=== PATIENT | female | born 1965 | race Caucasian/White ===

== ENCOUNTER → 2016-07-09 | Outpatient (CLI) | payer MEDICAID ==
[~2016-07-09] MED LIST: ATENOLOL50 M1 PO; BUPROPION HCL75 M1 PO; HYDROCODONE-APA1 TA1 PO; METFORMIN500 MG PO; NAPROXEN250 MG PO; VICODIN 5/500 T1 TAB PO; VOLTAREN75 MG PO; ZOFRAN ODT4 MG PO
== END ==
LOC: LAB 14:36
DX: N39.0 Urinary tract infection, site not specified (principal)

== ENCOUNTER 2016-12-28 08:15 | Emergency (ER) | payer MEDICAID ==
[~2016-12-28] VITALS: Ht 167.6 cm; Wt 90.7 kg
[~2016-12-28 08:15] MED LIST changes: +BACTRIM DS 8001 TA1 PO; +HYDROCODONE-APA1 TA2 PO; +INDOCIN25 MG PO; +NAPROSYN 500MG500 MG PO
--- NOTE | 2016-12-28 08:30 | Emergency Room Report ---
History of Present Illness Time Seen by MD Montelongo Presenting Problem in Triage Pt arrived:Walked Presenting Problem:complains of ear pain bilaterally, sore throat, cough and "fever" x 3 days Onset of symptoms date/time:/ or onset unknown for:MEDICAL HX UNKNOWN Treatment Prior to Arrival: [employer] [facility] Provided by: Sepsis Risk Assessment: Temp: 98.3 B/P: 169/80 MAP: 109 Pulse: 99 Resp: 18 Recent fever? N Clinical Suspician of Infection? N Mental Status: 1 - Regular (Normal Baseline) Sepsis Risk:Low Sepsis Risk Have you (or family members/close friends) recently traveled outside the [place]? N If Yes, where/when: Have you had exposure to infectious disease within the past month? TB? Other? Specify: Comment The patient has a 3 day history of a respiratory infection. She started with a sore throat also now has rhinorrhea, cough with clear mucus, nausea, and earaches, particularly on the LEFT. Temperature last night was 99 degrees. She has ear tubes. States she cannot take [id number] cough medications, dextromethorphan, because it makes her sick and causes her to vomit orange liquid. Has taken Amoxicillin and Zithromax for ear infections in the past. ALLERGIES Coded Allergies: prochlorperazine (From Compazine) (Mild, CONFUSION 12/28/16) latex (I-RASH 12/28/16) oxycodone (From PERCOCET) (NA-NAUSEA/VOMITING 12/28/16) ranitidine (From ZANTAC) (VOMIT 12/28/16) Home Medications Active Scripts SULFAMETHOXAZOLE W/TRIMETHOPRI (Bactrim Ds Tab) 1 TABLET PO BID #20 TAB Prov: 09/25/16 NAPROXEN (NAPROSYN 500MG TAB) 500 MG PO BID #20 TAB Prov: 09/25/16 Reported Medications Atenolol 50 MG PO DAILY #30 Metformin HCL (Metformin) 500 MG PO BID #60 History Medical History General CAD? No Angina: No IA: No Hypertension? No Hyperlipidemia? No CHF? No DVT? No PE? No COPD? No Asthma? Yes Anemia? No GERD? Yes Gastric ulcers? No GI Bleed? No Hernia? No Thyroid Problems? No Hypothyroidism? No CVA? No Seizures? No Diabetes? Yes Insulin Dependent: No Insulin Pump: No Home FSBS? Yes Renal Insuffiency? Yes End Stage Renal Disease? Yes UTI? Yes Stones? Yes BPH? No GB Disease: Yes Nephritic Syndrome? No Asplenia? No Hepatitis? Yes Sickle Cell Disease? No Arthritis? No Migraines? No Cataracts? No Glaucoma? No MRSA? No HIV? No TB? No Anxiety? Yes Depression? Yes Cancer? No More? No Additional hx: mitral Valve prolapse Immunization Hx Ped.Immunizations UTD Yes DT/Tetanus Unknown Flu Refused Pneumonia Never Had Surgical Hx Previous Surgery?Y WISDOM TEETH CYST R.OVARY AND PART OF R. OVARY REMOVED KIDNEY STONES-LEFTX4 LAP VIKTORIA DIANA EAR TUBES GALLBLADDER SALT [employer] STATION Hx LMP N/A Family History Family Hx Diabetes Yes CAD No Hypertension No Hyperlipidemia Yes Cancer Yes TB No Social History Smoking Hx Smoker: Never Smoker Tobacco: No Type N/A Packs/day N/A Are you/the child exposed to second-hand smoke: No Alcohol Alcohol: No Review of Systems All Other Systems Reviewed and Negative Constitutional fever ENT nose discharge, throat pain. Respiratory cough Physical Exam Vital Signs Vital Signs Date Time Temp Pulse Resp B/P Pulse O2 O2 Flow FiO2 Ox Delivery Rate 12/28 0850 98 18 158/72 99 12/28 0823 98.3 99 18 169/80 99 General Appearance no apparent distress Eye Exam - bilateral eye normal exam, bilateral eye PERRL, bilateral eye EOMI Ear, Nose, Throat RIGHT tympanic membrane shows no erythema or effusion. LEFT tympanic membrane shows mild erythema anteriorly. No drainage from tympanostomy tube., pharynx shows mild erythema, no exudates. Neck normal inspection, non-tender, supple, full range of motion, tender over submandibular nodes, but not enlarged. No posterior adenopathy. Respiratory Status Yes: trachea midline, chest symmetrical, non productive cough. No: respiratory distress. Lung Sounds bilateral: normal breath sounds, lungs clear. Cardiovascular normal exam, regular rate/rhythm, no peripheral edema, no gallop, no JVD, no murmur, no rub, normal peripheral pulses Peripheral Pulses Pulses normal Yes Gastrointestinal normal bowel sounds, normal exam, non tender, soft, no organomegaly Extremities normal inspection Neurologic alert Mental status normal mood/affect Skin intact, normal color, warm/dry Medical Decision Making LABS/Meds/Orders Pt receiving controlled substance in ED? No Progress - Patient asked about the possibility of influenza. I offered testing, but she declined. Departure Departure Disposition DC Home or Self Care(routine) Clinical Impression Primary Impression: Viral upper respiratory infection Secondary Impressions: Otalgia, left ear Condition STABLE Referrals Jesse DICKINSON,Celio Calabrese (Family) Patient Instructions DI for Otitis Media (Middle Ear Infection)-Child, DI for Viral Upper Respiratory Infection -- Adult Additional Instructions Off work 12/28, 12/29, 12/30. Additional instructions for UPPER RESPIRATORY INFECTION: See your physician as soon as possible for further evaluation. Return immediately if you have an uncontrollable fever greater than 102 degrees, difficulty breathing or shortness of breath, persistent vomiting, or inability to swallow. Prescriptions Current Visit Scripts Benzonatate (Tessalon Perle) 100 MG PO TID #15 SGL Azithromycin (Zithromycin (Z-ASAEL) 250MG Tab) 250 MG PO DAILY #6 TAB TAKE TWO (2) TABLETS ON DAY 1, THEN ONE (1) TABLET DAY #2 THRU #5 ED Critical Care Critical Care No at 1288
--- OUTSIDE RECORDS SUMMARY | 2016-12-28 08:31 | External Medical Summary Rpt | CCD ---
Author Author , [facility] Organization [facility] Address Unknown Phone Care Team Providers Care Regional Medical Director Name Role Phone BEINEKE BRENDAN, BEINEKE Unavailable Unavailable BRENDAN BEINEKE BRENDAN, BEINEKE Unavailable Unavailable BRENDAN RICHARDS ALL, RICHARDS ALL Unavailable Unavailable [facility] Unavailable Unavailable HOSPITAL, [facility] ALFRED MIGUEL, Unavailable Unavailable ALFRED MIGUEL [facility] Unavailable Unavailable ADULT & PED, [facility] ZOILA RADHA, ZOILA RADHA Unavailable Unavailable BROOKS NAIF, BROOKS NAIF Unavailable Unavailable [facility] ALONZO JR ART, ALONZO Unavailable Unavailable JR ART JEAN, JEAN Unavailable Unavailable DEPA RAY, DEPA RAY Unavailable Unavailable FARRER JIGNESH, FARRER Unavailable Unavailable JIGNESH [facility] Un[facility]available [facility], [facility] FRYMAN EUG, FRYMAN Unavailable Unavailable EUG DELL SHILA, DELL Unavailable Unavailable SHILA [facility] Unavailable Unavailable HOSPITA, [facility] H[facility]PITA [facility] Unavailable Unavailable INC, [facility] Unavailable [facility]available H[facility]PITAL, [facility] Unavailable [facility]available HOSPITAL P, [facility] P [facility], Unavailable Unavailable [facility] Unavailable GROUP PS, [facility] Unavailable Unavailable [facility], [facility] OLGUIN, OLGUIN Unavailable Unavailable OLGUIN ELLEN, OLGUIN Unavailable Unavailable ELLEN CHANTEL JR DWI, CHANTEL Unavailable Unavailable JR DWI ANNIE PRETTY, ANNIE PRETTY Unavailable Unavailable MCNEAL JOAQUIN, MCNEAL Unavailable Unavailable JOAQUIN ADEOLA GRE, Unavailable Unavailable ADEOLA GRE ADEOLA GRE, Unavailable Unavailable CHINEDU BUSH Unavailable Unavailable [facility] Unavailable Unavailable [facility], [facility] [employer] [address] [facility] Unavailable Unavailable MRI [facility], [employer] [address] [facility], [facility], [facility] Unavailable Unavailable LABS, [facility], Unavailable Unavailable PLL[facility], [facility], [facility] DANAY TOD, DANAY TOD Unavailable Unavailable SADEK, SADEK Unavailable Unavailable DELBERT DES, DELBERT DES Unavailable Unavailable SOKAN BAB, SOKAN BAB Unavailable Unavailable [place] SHE, Unavailable Unavailable KIANNA SHE [facility], Unavailable Unavailable [facility] BRETT COULTER, BRETT Unavailable Unavailable YFN MATHUR MARIO, KAREEN Unavailable Unavailable MARIO Purpose Continuity of Care Document - 07-08-2013 through 2016 Problems Code Diagnosis DOS Provider Status [id number] UNSPECIFIED 07-22-2016 [place] [facility]IAN [facility]ICAL CYST LEFT IMAGING ASS SIDE E1165 TYPE 2 07-17-2016 [facility] MELLITUS INC WITH HYPERGLYCEM IA E118 TYPE 2 07-17-2016 [facility] DI[facility]ETES PHYSICIANS, MELLITUS [facility] W/UNS COMPLICATIO NS [id number] UNSPECIFIED 07-17-2016 [facility] CYST INC UNSPECIFIED SIDE N839 NONINFLAMM 07-17-2016 [place] D/O OVARY MEDICAL FALLOP TUBE IMAGING ASS & BROAD LIG UNS R109 UNSPECIFIED 07-17-2016 [place] ABDOMINAL MEDICAL PAIN IMAGING ASS Z794 MANAGER OF RADIOLOGY 07-17-2016 [facility] CURRENT USE PHYSICIANS, OF INSULIN [facility] [id number] PERSONAL 07-17-2016 [place] HISTORY OF MEDICAL URINARY IMAGING ASS CALCULI N390 URINARY 07-09-2016 [facility] INFECTION INC SITE NOT SPECIFIED [id number] PAIN IN 02-05-2016 [facility] LEFT ANKLE PODIATRY [facility] M7732 CALCANEAL 02-05-2016 [facility] SPUR LEFT PODIATRY FOOT [facility] M7742 METATARSALG 02-05-2016 [facility] IA LEFT PODIATRY FOOT [facility] K75412 PAIN IN 02-05-2016 [facility] LEFT FOOT PODIATRY [facility] M7989 OTHER 01-17-[address] [facility] DISORDERS G5762 LESION OF 12-04-2015 [facility] PLANTAR PODIATRY NERVE LEFT [facility] LOWER LIMB E119 TYPE 2 09-18-2015 [facility] DIABETES PHYSICIANS MELLITUS GROUP WITHOUT COMPLICATIO NS 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-18-2015 [facility] TUNNEL PHYSICIANS SYNDROME GROUP UNSPECIFIED UPPER LIMB H6520 CHRONIC 06-15-2015 [facility] SEROUS PHYSICIANS OTITIS GROUP MEDIA UNSPECIFIED EAR J309 ALLERGIC 06-15-2015 [facility] RHINITIS PHYSICIANS UNSPECIFIED GROUP 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 Z6835 BODY MASS 06-15-2015 [facility] INDEX BMI PHYSICIANS 35.0-35.9 GROUP ADULT Z6836 BODY MASS 06-15-2015 [facility] INDEX BMI PHYSICIANS 36.0-36.9 GROUP ADULT Z885 ALLERGY 06-15-2015 [facility] STATUS TO PHYSICIANS NARCOTIC GROUP AGENT STATUS Z889 ALLERGY 06-15-2015 [facility] STATUS UNS PHYSICIANS RX MEDS & GROUP BIOLOG SUBSTANC STS R197 DIARRHEA 06-02-2015 [facility]PEC[facility] INC H6503 ACUTE 05-18-2015 [facility] SEROUS PHYSICIANS OTITIS GROUP MEDIA BILATERAL H6523 CHRONIC 05-18-2015 [facility] SEROUS [facility] OTITIS INC MEDIA BILATERAL H6693 OTITIS 05-18-2015 COMMUNITY MEDIA ANESTH OF UNSPECIFIED THE BLUE BILATERAL J320 CHRONIC 04-06-2015 [facility] MAXILLARY PHYSICIANS SINUSITIS GROUP Z6837 BODY MASS 04-06-2015 [facility] INDEX BMI PHYSICIANS 37.0-37.9 GROUP ADULT H6690 OTITIS 02-28-2015 [facility]IC[facility]IED HOSPITAL UNSPECIFIED EAR J0100 ACUTE 02-28-2015 [facility] SINUSITIS HOSPITAL UNSPECIFIED R05 COUGH 02-28-2015 [facility] Z0100 ENCOUNTER 02-14-2015 [facility] EXAM EYES & GRE VISION W/O ABNORMAL FIND K811 CHRONIC 02-10-2015 [facility], CHOLECYSTIT LLC IS K819 CHOLECYSTIT 02-10-2015 COMMUNITY IS ANESTH OF UNSPECIFIED THE BLUE K824 CHOLESTEROL 02-10-2015 [facility], OSIS OF LLC GALLBLADDER K828 OTHER 02-10-2015 [facility] SPECIFIED PHYSICIANS DISEASES OF GROUP GALLBLADDER R1011 RIGHT UPPER 12-27-2014 [place] QUADRANT MEDICAL PAIN IMAGING ASS R110 NAUSEA 12-27-2014 [place] [facility] H6592 UNSPECIFIED 12-26-2014 [facility] PHYSICIANS NONSUPPURAT GROUP GEOFF OTITIS MEDIA LT EAR I341 NONRHEUMATI 12-26-2014 [facility] C MITRAL PHYSICIANS VALVE GROUP PROLAPSE I10 ESSENTIAL 12-15-2014 [facility] HYPERTENSIO INC N 9390 FOREIGN 09-27-2014 [facility] IN [place] BLADDER AND ADULT & PED URETHRA 5920 CALCULUS OF 09-22-2014 [place] KIDNEY ANESTHESIA GROUP PS 7935 NONSPECIFIC 09-22-2014 [facility] ABN [place] FINDING RAD ADULT & PED & OTH EXAM ORGAN 90131 DIAB W/O 09-21-2014 [place] COMP TYPE COMMUNITY II/UNS NOT HOSPITAL STATED UNCNTRL 52112 ASTHMA, 09-21-2014 [facility] UNSPECIFIED [facility] UNSPECIFIED STATUS 96569 ESOPHAGEAL 09-21-2014 [facility] REFLUX [facility] 71666 ABDOMINAL 09-21-2014 [facility] UNSPECIFIED HOSPITAL SITE V148 PERSONAL 09-21-2014 [facility] HISTORY [facility] ALLERGY OT HOSPITAL SPEC MEDICINAL AGTS V5869 LONG-TERM 09-21-2014 [facility] (CURRENT) [facility] USE OF HOSPITAL OTHER MEDICATIONS 96135 OVERWEIGHT 09-16-2014 [facility] P 3559 MONONEURITI 09-16-2014 [facility] S OF [facility] UNSPECIFIED INC SITE 4240 MITRAL 09-16-2014 [facility] P 84687 CHEST PAIN 09-16-2014 [facility] UNSPECIFIED [facility] INC 64478 NAUSEA WITH 09-16-2014 [place] VOMITING MEDICAL IMAGING ASS 7881 DYSURIA 09-16-2014 [facility] INC 48187 ABDOMINAL 09-16-2014 [place] PAIN RIGHT MEDICAL UPPER IMAGING ASS QUADRANT V700 ROUTINE 09-16-2014 [facility] MEDICAL INC EXAM@HEALTH CARE FACL 1891 MALIGNANT 09-08-2014 [facility] NEOPLASM OF [place] RENAL ADULT & PED PELVIS 3829 UNSPECIFIED 07-20-2014 [facility] OTITIS PHYSICIANS MEDIA GROUP 4739 UNSPECIFIED 07-20-2014 [facility] SINUSITIS PHYSICIANS GROUP 87083 UNSPECIFIED 03-24-2014 [facility] OTALGIA PHYSICIANS GROUP 5932 ACQUIRED 03-24-2014 [facility] CYST OF [place] [facility]NEY ADULT & PED 7245 UNSPECIFIED 03-24-2014 [facility] BACKACHE [place] ADULT & PED 7295 PAIN IN 03-24-2014 [facility] SOFT PHYSICIANS TISSUES OF GROUP LIMB 08413 NEOPLASM OF 01-10-2014 [facility] [place] [address] OBESITY, 01-10-2014 [facility] UNSPECIFIED [facility] 4019 UNSPECIFIED 01-10-2014 [facility] ESSENTIAL [facility] HYPERTENSIO [facility] N 591 HYDRONEPHRO 01-10-2014 [facility] SIS [place] ADULT & PED 5921 CALCULUS OF 01-10-2014 [place] URETER ANESTHESIA GROUP PS V8534 BODY MASS 01-10-2014 [facility] INDEX COMMUNITY 34.0-34.9 HOSPITAL ADULT 7880 RENAL COLIC 01-06-2014 [facility] ADULT & PED V7283 OTHER 10-18-2013 [facility] SPECIFIED COMMUNITY PRE-OPERATI HOSPITA VE EXAMINATION 68683 MORBID 10-08-2013 [facility]ITAL 490 BRONCHITIS 10-08-2013 [facility] NOT [facility] SPECIFIED ACUTE OR CHRONIC 34373 EXTRINSIC 10-08-2013 [facility] ASTHMA, HOSPITAL UNSPECIFIED 77743 UNSPECIFIED 10-07-2013 [facility] PYELONEPHRI [facility] P TIS 22207 URINARY 10-05-2013 BEINEKE BRENDAN OBSTRUCTION UNSPECIFIED 84230 ABD/PELVIC 10-05-2013 BEINEKE BRENDAN SWELLING MASS/LUMP OT SPEC SITE 16203 OTHER 08-24-2013 [facility] FATIGUE INC V720 EXAMINATION 07-08-2013 A[facility]A OF EYES GRE AND VISION E11.65 TYPE 2 DIABETES MELLITUS WITH HYPERGLYCEM IA F32.9 MAJOR DEPRESSIVE DISORDER, SINGLE EPISODE, UNSPECIFIED N20.1 CALCULUS OF URETER N83.209 UNSPECIFIED OVARIAN CYST, UNSPECIFIED SIDE Allergies, Adverse Reactions, Alerts Clinical Alert Notifications Alert Diabetes: no A1C in the last 6 months Diabetes: no eye exam in the last 365 days Diabetes: no influenza vaccine in the last 365 days Diabetes: no lipid panel in the last 365 days Diabetes: no urine protein screening in the last 365 days Medications Na ND Rx Da Fi Fi Am Da Di Ph RX Ph St me C No te ll ll ou ys ag ar # ys at rm s nt no ma ic us Or Da si cy ia de te s n re d AT 68 09 10 30 30 00 CL Ac EN 38 -1 -1 .0 00 IN ti OL 20 5- 3- 00 00 IC ve OL 02 20 20 44 31 17 17 27 PH 50 0 45 AR MA MG CY TA BL ET LO 00 08 09 60 30 00 WA Ac RA 37 -0 -0 .0 00 L- ti ZE 82 1- 1- 00 04 MA ve PA 32 20 20 53 RT M 10 17 17 02 0. 1 15 PH 5 AR MG MA CY TA BL #5 ET 91 NA 65 07 08 20 10 00 WA Ac UT 16 -1 -1 .0 00 L- ti OX 20 9- 8- 00 07 MA ve EN 19 20 20 49 RT 01 17 17 97 50 1 34 PH 0 AR MG MA CY TA BL #5 ET 91 OWENS 65 07 08 20 10 00 WA Ac LF 86 -1 -1 .0 00 L- ti AM 20 9- 8- 00 07 MA ve ET 42 20 20 49 RT HO 00 17 17 97 XA 5 35 PH ZO AR LE MA -T CY MP #5 DS 91 TA BL ET AT 00 07 08 30 30 00 [place] Ac EN 09 -1 -0 .0 00 L- ti OL 30 6- 4- 00 07 MA ve OL 75 20 20 48 RT 21 17 17 82 50 0 16 PH AR MG MA CY TA BL #5 ET 91 AT 00 07 30 30 00 [place] Ac EN 78 -1 -0 .0 00 L- ti OL 11 5- 7- 00 07 MA ve OL 50 20 20 48 RT 61 17 17 82 50 0 16 PH AR MG MA CY TA BL #5 ET 91 AT 00 06 30 30 00 [place] Ac EN 09 -1 -0 .0 00 L- ti OL 30 6- 9- 00 07 MA ve OL 75 20 20 48 RT 21 17 17 82 50 0 16 PH AR MG MA CY TA BL #5 ET 91 LO 00 05 06 60 30 00 [place] Ac RA 37 -0 -0 .0 00 L- ti ZE 82 3- 2- 00 04 MA ve PA 32 20 20 53 RT M 10 17 17 02 0. 1 15 PH 5 AR MG MA CY TA BL #5 ET 91 UT 59 05 06 10 5 00 [place] Ac ED 74 -0 -0 .0 00 L- ti NI 60 3- 2- 00 07 MA ve SO 17 20 20 48 RT NE 30 17 17 57 6 37 PH 10 AR MA MG CY TA #5 BL 91 ET IN 31 05 06 20 5 00 [place] Ac DO 72 -1 -0 .0 00 L- ti ME 20 1- 2- 00 07 MA ve TH 54 20 20 48 RT AC 20 17 17 74 IN 1 68 PH AR 25 MA CY MG #5 CA 91 PS UL E BU 60 05 06 60 30 00 KY Ac UT 50 -0 -0 .0 00 L- ti OP 50 3- 2- 00 07 MA ve IO 15 20 20 48 RT N 80 17 17 57 HC 1 44 PH L AR 75 MA CY MG #5 TA 91 BL ET AZ 59 05 06 6. 5 00 [place] Ac IT 76 -0 -0 00 00 L- ti HR 23 3- 2- 0 07 MA ve OM 06 20 20 48 RT YC 00 17 17 57 IN 1 45 PH AR 25 MA 0 CY MG #5 TA 91 BL ET ME 68 05 06 60 30 00 [place] Ac TF 64 -0 -0 .0 00 L- ti OR 50 3- 2- 00 07 MA ve KS 54 20 20 48 RT N 55 17 17 57 HC 9 38 PH L AR 1, MA 00 CY 0 MG #5 91 TA BL ET AT 00 04 05 30 00 [place] Ac EN 78 -1 -0 .0 00 L- ti OL 11 4- 5- 00 07 MA ve OL 50 20 20 48 RT 61 17 17 22 50 0 68 PH AR MG MA CY TA BL #5 ET 91 AT 00 03 04 30 30 00 [place] Ac EN 78 -1 -0 .0 00 L- ti OL 11 5- 7- 00 07 MA ve OL 50 20 20 47 RT 61 17 17 66 50 0 31 PH AR MG MA CY TA BL #5 ET 91 AT 00 02 30 30 00 [place] Ac EN 78 -1 -1 .0 00 L- ti OL 11 0- 0- 00 07 MA ve OL 50 20 20 47 RT 61 17 17 00 50 0 64 PH AR MG MA CY TA BL #5 ET 91 AT 30 00 [place] Ac EN 78 -1 -1 .0 00 L- ti OL 11 3- 0- 00 07 MA ve OL 50 20 20 46 RT 61 17 17 44 50 0 00 PH AR MG MA CY TA BL #5 ET 91 AT 12 30 30 00 [place] Ac EN 78 -1 -0 .0 00 L- ti OL 11 2- 9- 00 07 MA ve OL 50 20 20 45 RT 61 16 17 80 50 0 08 PH AR MG MA CY TA BL #5 ET 91 Procedures [place] [address] [facility] TRANSVAGI 7 MEDICAL NAL IMAGING ASS US PELVIC 10945 [facility] 7 MEDICAL NONOBSTET IMAGING JOAQUIN ASS REAL-TIME IMAGE COMPLETE BLOOD 22607 [facility] COUNT 7 [facility] COMPLETE INC INC AUTO&AUTO DIFRNTL WBC COMPREHEN 89512 [facility] SIVE 7 [facility] [place] [address] [facility] ABDOMEN & 7 [facility] PELVIS INC INC W/O CONTRAST MATERIAL THERAPEUT 35717 [facility] IC 7 [facility] PROPHYLAC INC INC TIC/DX INJECTION SUBQ/IM THER 13141 [facility] PROPH/DX 7 [facility] NJX IV INC INC PUSH SINGLE/1S T SBST/DRUG CULTURE 86528 [facility] BACTERIAL 7 [facility] INC INC QUANTTATI VE COLONY COUNT URINE WALKING L4360 [facility] BOOT 6 [facility] PNEUMATC PODIATRY &/ VACUUM PLLC PREFAB CUSTM FIT ADD LOW L2840 [facility]ET [facility] EXTREM 6 [facility] ORTHOTIC PODIATRY TIB PLLC LENGTH SOCK FX/= EA MRI LOWER 44892 NICHOLASV NICHOLASV EXTREM [address] OTH/THN [facility] JT W/O CONTR MATRL RADEX 20042 FEET [facility] FOOT 6 [facility] COMPLETE PODIATRY MINIMUM 3 PLLC VIEWS RADEX 53020 [facility] FOOT 6 [facility] COMPLETE INC INC MINIMUM 3 VIEWS RADIOLOGI 37634 [place] RICHARDS ALL C 6 MEDICAL EXAMINATI IMAGING [place] 2 [place] [address] [facility] HPYLORI 6 [facility] STOOL INC INC IADNA-DNA 60627 [facility] /RNA GI 6 [facility] PTHGN INC INC MULTIPLEX PROBE TQ -25 CUL BACT 91574 [facility] STOOL 6 [facility] AEROBIC INC INC ISOL SALMONELL A&SHIGELL BLOOD 36072 [facility] OCCULT 6 [facility] PEROXIDAS INC INC E ACTV QUAL FECES 1-3 SPEC GLUC BLD 76165 [facility] GLUC MNTR 6 [facility] DEV INC INC CLEARED FDA SPEC HOME USE ANES 11190 COMMUNITY BRETT XTRNL MID 6 ANESTH YFN & INNER OF THE EAR W/BX BLUE TYMPANOTO MY COLLECTIO 40544 [facility] N VENOUS 6 [facility] BLOOD INC INC VENIPUNCT URE BLOOD 81490 [facility] COUNT 6 [facility] COMPLETE INC INC AUTO&AUTO DIFRNTL WBC BASIC 79919 [facility] METABOLIC 6 [facility] [place] T[place] [address] [facility] INFUSION 6 [facility] THERAPY/P INC INC ROPHYLAXI S /DX 1ST TO 1 HR THERAPEUT 10933 [facility] CIARA IC 6 [facility] H[facility] INJECTION INC INC IV PUSH EACH NEW DRUG URINE 41989 [facility] 6 [facility] TEST INC [place] [address] [facility] INFUSION 6 [facility] THERAPY INC INC PROPHYLAX IS/DX EA HOUR TYMPANOST 42020 [facility] PATRICK 6 [facility] H[facility] GENERAL INC INC ANESTHESI A IAADIADOO 82009 [facility] ISSA 5 [facility] DETERMINA 76015 [facility] 5 GRE GRE REFRACTIV E STATE OPHTH 53617 [facility] 5 GRE GRE XM&EVAL COMPRHNSV ESTAB PT 1/> LEVEL III 10587 [facility] ZOILA RADHA SURG 5 [facility] PATHOLOGY GROSS&[place] [address] [facility] INFUSION 5 [facility] THERAPY/P INC INC ROPHYLAXI S /DX 1ST TO 1 HR THERAPEUT 40324 [facility] U[facility] IC 5 [facility] INJECTION INC [place] [address] [facility] INFUSION 5 [facility] THERAPY INC INC PROPHYLAX IS/DX EA HOUR COLLECTIO 04772 [facility] N VENOUS 5 [facility] BLOOD INC INC VENIPUNCT URE INJECTION J2405 [facility] URBINA 5 [facility] ONDANSETR INC INC ON HCL PER 1 MG BLOOD 89415 [facility] COUNT 5 [facility] COMPLETE INC INC AUTO&AUTO DIFRNTL WBC ANES 49016 [facility] INTRAPERI 5 ANESTH SHE TONEAL OF THE UPPER BLUE ABDOMEN W/LAPS NOS LAPAROSCO 92145 [facility] PY SURG 5 [facility] CHOLECYST INC INC ECTOMY GLUC BLD 60151 [facility] GLUC MNTR 5 [facility] DEV INC INC CLEARED FDA SPEC HOME USE BLOOD 05682 [facility] COUNT 5 [facility] COMPLETE INC INC AUTO&AUTO DIFRNTL WBC COMPREHEN 36852 [facility] SIVE 5 [facility] METABOLIC INC INC PANEL COLLECTIO 87723 [facility] N VENOUS 5 [facility] BLOOD INC INC VENIPUNCT URE URINE 31947 [facility] 5 [facility] TEST INC INC VISUAL COLOR CMPRSN METHS ECG 65199 [facility] GOLDEN JR ROUTINE 5 [facility] W/LEAST P 12 LDS I&R ONLY ECG 76737 [facility] ROUTINE 5 [facility] ECG INC INC W/LEAST 12 LDS TRCG ONLY W/O I&R HEPATOBIL 62720 [facility] SYST 5 [facility] IMAG INC INC INC GB W/PHARMA INTERVENJ INJECTION J2805 [facility] 5 [facility] SINCALIDE INC INC 5 MICROGRAM S LIPID 99396 [facility] PANEL 5 [facility] INC INC HEMOGLOBI 08458 [facility] U[facility] N 5 [facility] GLYCOSYLA INC INC RASHAD A1C GENERAL 84108 [facility] HEALTH 5 [facility] [place] [address] [facility] THYROXINE 5 [facility] TOTAL INC INC CYSTO 27188 [facility] W/SIMPLE 5 [place] MIGUEL REMOVAL ADULT & STONE & PED STENT CYSTO/URE 58210 [facility] TERO 5 [place] MIGUEL W/LITHOTR ADULT & IPSY PED &INDWELL STENT INSRT URINE 13146 [place] 5 [facility] VISUAL COLOR CMPRSN METHS X-RAY 81250 [place] URINARY 5 [facility] EXAM WITH CONTRAST MATERIAL INTRO 55243 [place] URETERAL 5 [facility] T PRQ RS&I DILATION 14915 [facility] NEPHROSTO 5 [place] MIGUEL MY/URETER ADULT & /URETHRA PED RS&I STENT C2617 GREY EDMONDS NON-COR 5 [facility] WITHOUT DELIVERY SYSTEM GLUC BLD 36648 GREY NAYAON GLUC MNTR 5 [facility] CLEARED FDA SPEC HOME USE ANES 58393 [place] CHINEDU TRURL 5 ANESTHESI HERBER FRAGMNTJ A GROUP MANJ&/[place] [address] [facility] ABDOMINAL 5 [facility] REAL INC INC TIME W/IMAGE LIMITED URNLS DIP 63401 [facility] 5 [facility] STICK/TAB INC INC LET REAGENT AUTO MICROSCOP Y CULTURE 32296 [facility] BACTERIAL 5 [facility] INC INC QUANTTATI VE COLONY COUNT URINE COLLECTIO 56860 [facility] N VENOUS 5 [facility] [place] [address] [facility] AMYLASE 5 [facility] [place] [address] [facility] LIPASE 5 [facility] INC INC ECG 46857 [facility] ROUTINE 5 [facility] ECG INC INC W/LEAST 12 LDS TRCG ONLY W/O I&R BLOOD 49008 [facility] COUNT 5 [facility] COMPLETE INC INC AUTO&AUTO DIFRNTL WBC COMPREHEN 53063 CI[facility] URBINA SIVE 5 [facility] METABOLIC INC INC PANEL ECG 86064 CIARA GOLDEN JR ROUTINE 5 [facility] W/LEAST P 12 LDS I&[place] [address] CENTRAL ALFRED RETROPERI 5 [place] MIGUEL TONEAL ADULT & REAL TIME PED W/IMAGE COMPLETE ANES 11402 [place] DEPA RAY TRURL 4 ANESTHESI FRAGMNTJ A GROUP MANJ&/RMV PS L URETERAL CALCULUS GLUC BLD 62855 GREY GREY GLUC MNTR 4 [facility] CLEARED FDA SPEC HOME USE CYSTO 30954 CENTRAL ALFRED W/INSERT 4 L[facility] MIGUEL URETERAL ADULT & STENT PED CYTP 85602 [facility] JOAQUIN CELL ENHANCEME NT INTERPJ XCPT C/V GUIDE C1769 GREY PERSONON WIRE 4 [facility] STENT C2617 GREY EDMONDS NON-COR 4 [facility] WITHOUT DELIVERY SYSTEM CYSTO/URE 67747 BOJAYDEN PERSONON TERO 4 [facility] IPSY &INDWELL STENT INSRT CYSTO 24077 CENTRAL ALFRED W/URETERO 4 LANG MIGUEL SCOPY ADULT & W/LITHOTR PED IPSY URINE 29345 GREY PERSONON 4 [facility] VISUAL COLOR CMPRSN METHS DILATION 57593 CENTRAL ALFRED NEPHROSTO 4 [facility] MY/URETER ADULT & /URETHRA PED RS&I INTRO 00430 BOJAYDEN PERSONON URETERAL 4 [facility] CATH/[facility] T PRQ RS&I ECG 67939 NAIF BROOKS BROOKS NAIF ROUTINE 4 MD ECG CONSULTIN W/LEAST G SRV 12 LDS I&R ONLY BLOOD 77369 [address] [facility] AUTO&AUTO DIFRNTL WBC ECG 90854 BOKELSEYON BOURBON ROUTINE 4 [facility] W/LEAST 12 LDS TRCG ONLY W/O I&R COMPREHEN 64449 GREY PERSONON SIVE 4 [facility] PANEL URNLS DIP 43978 BOUR[place] BOURB[place] 4 [facility] STICK/[facility] HOSPITAL LET REAGENT AUTO MICROSCOP Y GLUC BLD 04205 [facility] GLUC MNTR 4 PHYSICIAN PHYSICIAN DEV S GROUP S GROUP CLEARED FDA SPEC HOME USE CYSTO 24484 CENTRAL ALFRED W/SIMPLE 4 BIBY MIGUEL REMOVAL ADULT & STONE & PED STENT GLUC BLD 61120 [place] GLUC MNTR 4 [facility] CLEARED FDA SPEC HOME USE CYSTO 74642 CENTRAL ALFRED W/INSERT 4 [facility] MIGUEL URETERAL ADULT & STENT PED LITHOTRIP 80100 CENTRAL ALFRED SY 4 [facility] [place] XTRCORP ADULT & SHOCK PED WAVE ANES 45238 [facility] MANDUJANO DES LITHOTRP 4 ANESTHESI XTRCORP A GROUP SHOCK PS WAVE W/O WATER BATH CULTURE 29089 [facility] BACTERIAL 4 [facility] H[facility] VE COLONY COUNT URINE COMPREHEN 73290 [facility] SIVE 4 N N METABOLIC [facility] PANEL HOSPITA HOSPITA URNLS DIP 15269 [facility] 4 N N STICK/TAB [facility] LET HOSPITA HOSPITA REAGENT AUTO MICROSCOP Y BLOOD 63495 [facility] COUNT 4 N N COMPLETE [facility] AUTO&AUTO HOSPITA HOSPITA DIFRNTL WBC ECG 46363 [facility] ROUTINE 4 N N ECG [facility] W/LEAST HOSPITA HOSPITA 12 LDS TRCG ONLY W/O I&R RADEX 80036 [facility] BEINEKE ABDOMEN 1 4 BRENDAN BRENDAN ANTEROPOS TERIOR VIEW RADEX [address] ANTEROPOS TERIOR VIEW GLUCOSE [address] REAGENT STRIP INJECTION J2405 [address] ONDANSETR ON HCL PER 1 MG ECG 69177 [facility] PRETTY ROUTINE 4 PHYSICIAN ECG GROUP, W/LEAST INC. 12 LDS I&R ONLY CYSTO 95305 KIM ROSADO JR W/INSERT 4 [facility] STENT PSC INJECTION J2250 [address] [place] HCL PER 1 MG CYSTO 37650 [facility] W/O [address] [place] [address] RMVL URETERAL STONE ANES 44273 ANESTHESI KAREEN PATEL 4 A MARIO FRAGMNTJ ASSOCIATE [facility]&/RMV S PSC L URETERAL CALCULUS INJECTION J1956 [address] [place]OX[place] JAILENE 250 MG INJECTION J[address] [place] HCL INTRAVENO US INFUS 10 MG RINGERS J7120 [facility] LACTATE [address] [place] [address] INFUSION UP TO 1000 CC INJECTION J18[address] KETOROLAC TROMETHAM INE PER 15 MG INJECTION J3010 [facility] FENTANYL [address] [place] [address] CITRATE 0.1 MG CULTURE 71039 [facility] BACTERIAL [address] [place] [address] QUANTTATI VE COLONY COUNT URINE GONADOTRO 94146 [facility] PIN [address] [place] [address] CHORIONIC QUALITATI VE 3D 47725 [facility] RENDERING 4 [facility] HOSP INC INC W/INTERP& POSTPROC DIFF WORK STATION INJECTION J2405 [facility] 4 [facility] HOSP ONDANSETR INC INC ON HCL PER 1 MG COMPREHEN 04119 [facility] SIVE 4 [facility] HOSP METABOLIC INC INC PANEL URNLS DIP 80225 [facility] 4 [facility]OSP STICK/TAB INC INC LET REAGENT AUTO MICROSCOP Y THERAPEUT 41104 [facility] IC 4 [facility] INJECTION INC [place] [address] [facility] LIPASE 4 [facility] INC INC URINE 45307 [facility] 4 [facility] TEST INC INC VISUAL COLOR CMPRSN METHS BLOOD 11192 [facility] COUNT 4 [facility]P COMPLETE INC INC AUTO&[place] [address] BEINEKE BEINEKE ABDOMEN & 4 BRENDAN BRENDAN PELVIS W/[place] [address] [facility] AMYLASE 4 [facility] INC INC THER 61153 [facility] PROPH/DX 4 [facility] NJX IV INC INC PUSH SINGLE/1S T SBST/[place] [address] [facility] VITAMIN A 4 [facility] [place] [address] [facility] THYROXINE 4 [facility] TOTAL INC INC CYANOCOBA 36774 [facility] RENNY 4 [facility] VITAMIN INC INC B-12 HEMOGLOBI 85327 [facility] N 4 [facility] GLYCOSYLA INC INC RASHAD A1C SEDIMENTA 41647 [facility] TION RATE 4 [facility] RBC INC INC NON-AUTOM ATED LIPID 94196 [facility] PANEL 4 [facility] INC INC GENERAL 55865 [facility] PANEL INC INC Encounters Encounter Start End Date Code Location Performer Type Date HOSPITAL [facility] - 7 7 [facility] OUTPATIEN INC T EMERGENCY 41509 [facility] 7 7 [facility] INC T VISIT MODERATE SEVERITY HOSPITAL [facility] - 7 7 [facility] OUTPATIEN INC T EMERGENCY 94210 [facility] DEPT 7 7 PHYSICIAN VISIT S, [facility] HIGH SEVERITY& THREAT [facility] - 7 7 [facility] OUTPATIEN INC T OFFICE 95411 [facility] OUTPATIEN 6 6 FIRST JIGNESH T VISIT PODIATRY 15 [facility] MINUTES OFFICE 29732 [facility] OUTPATIEN 6 6 FIRST JIGNESH T NEW 45 PODIATRY MINUTES [facility] - 6 6 [facility] OUTPATIEN INC T OFFICE 89286 [facility] DELL OUTPATIEN 6 6 PHYSICIAN SHILA T VISIT S GROUP 25 MINUTES OFFICE 44644 [facility] OLGUIN OUTPATIEN 6 6 PHYSICIAN T VISIT S GROUP 15 MINUTES HOSPITAL [facility] - 6 6 [facility] OUTPATIEN INC T OFFICE 49092 [facility] DELL OUTPATIEN 6 6 PHYSICIAN SHILA T VISIT S GROUP 10 MINUTES HOSPITAL [facility] - [address] [facility] T OFFICE 94725 [facility] ISSA OUTPATIEN 5 5 [facility] H[facility] 15 MINUTES HOSPITAL [facility] - 5 5 [facility]EN [facility] - 5 5 [facility] OUTPATIEN [facility] T OFFICE 89425 [facility] DANAY IBARRA CONSULTAT 5 5 PHYSICIAN ION S GROUP NEW/ESTAB PATIENT 40 MIN HOSPITAL [facility] - 5 5 [facility] OUTPATIEN [facility] T OFF[facility] 90987 [facility] PHYSICIAN ELLEN T NEW 45 S GROUP MINUTES HOSPITAL [facility] 5 5 [facility] OUTPATIEN [facility] [place] [facility] 5 5 [facility]ARA - 5 5 [facility] OUT[facility] T OFF[facility] 41137 [facility] 5 5 [place] [facility] T VISIT ADULT & 25 PED MINUTES OFFICE 23559 [facility] DELL OUTPATIEN 5 5 PHYSICIAN SHILA T VISIT S GROUP 15 MINUTES OFFICE 24122 [facility] DELL OUTPATIEN 5 5 PHYSICIAN SHILA T VISIT S GROUP 15 MINUTES OFFICE 75287 [facility] 5 5 [place] [facility] T VISIT ADULT & 25 PED MINUTES [facility] [place] [facility] 4 4 [facility] [place] - 4 4 [facility] T OFFICE 74098 [facility] 4 4 [place] [facility] T VISIT ADULT & 15 PED MINUTES OFFICE 96196 [facility] 4 PHYSICIAN SHILA T VISIT S GROUP 15 MINUTES [facility] [place] - 4 4 [facility] OFFICE 89923 [facility] CON[facility]ULTAT 4 4 [place] MIGUEL ION ADULT & NEW/ESTAB PED PATIENT 40 MIN [facility]OSPITAL [facility] - 4 4 N [facility] HOSPITA [facility]ICE 05045 [facility] 4 [facility] VISIT HOSPITAL 15 P MINUTES HOSPITAL [facility] - 4 4 [facility] 68066 [facility] [address] [facility] 20 HOSPITAL MINUTES P EMERGENCY 86959 [facility] 4 4 [facility] T VISIT MODERATE SEVERITY EMERGENCY 86747 [facility] 4 4 [facility] PHYSI HIGH/URGE NT SEVERITY HOSPITAL [facility] - 4 4 [facility]PATIEN [facility] - 4 4 [facility]
--- OUTSIDE RECORDS SUMMARY | 2016-12-28 08:31 | External Medical Summary Rpt | CCD ---
Author Author , ASUNCION Organization [facility] Address Unknown Phone [email or web address] Care Team Providers Care Computer Forwarding System Markup Clerk Name Role Phone BEINEKE BRENDAN, BEINEKE Unavailable Unavailable BRENDAN BEINEKE BRENDAN, BEINEKE Unavailable Unavailable BRENDAN RICHARDS ALL, RICHARDS ALL Unavailable Unavailable [facility] Unavailable Unavailable [facility], [facility] ALFRED MIGUEL, Unavailable Unavailable ALFR[facility] MIGUEL [facility] Unavailable Unavailable ADULT & PED, [facility] ZOILA RADHA, ZOILA RADHA [...] EUG DELL SHILA, DELL Unavailable Unavailable [facility] Unavailable [facility] Unavailable Unavailable INC, [facility] Unavailable Unavailable HOSPITAL, [facility] Unavailable Unavailable HOSPITAL P, [facility] P [facility], [facility]available Unavailable [facility] Unavailable GROUP PS, [facility] Un[facility] OLGUIN, OLGUIN Unavailable Unavailable OLGUIN ELLEN, OLGUIN Unavailable Unavailable ELLEN CHANTEL JR DWI, CHANTEL Unavailable Unavailable JR DWI ANNIE PRETTY, ANNIE PRETTY Unavailable Unavailable MCNEAL JOAQUIN, MCNEAL Unavailable Unavailable JOAQUIN ADEOLA GRE, Unavailable Unavailable ADEOLA GRE ADOELA GRE, Unavailable Unavailable CHINEDU BUSH Unavailable Unavailable [facility] [address] [facility] Unavailable Unavailable [facility], [address] [facility] Unavailable Unavailable [facility], [facility], Unavailable Unavailable PLL[facility], [facility], [facility] DANAY TOD, DANAY TOD Unavailable Unavailable SADEK, SADEK Unavailable Unavailable DELBERT DES, DELBERT DES Unavailable Unavailable SOKAN BAB, SOKAN BAB Unavailable Unavailable BOHANNON SHE, Unavailable Unavailable KIANNA SHE [facility], Unavailable Unavailable [facility] BRETT COULTER, BRETT Unavailable Unavailable YFN MATHUR MARIO, KAREEN Unavailable Unavailable MARIO Purpose Continuity of Care Document - 07-08-2013 through 2016 Problems Code Diagnosis DOS Provider Status [id number] UNSPECIFIED 07-22-2016 [facility] CYST LEFT IMAGING ASS SIDE E1165 TYPE 2 07-17-2016 [facility] MELLITUS INC WITH HYPERGLYCEM IA E118 TYPE 2 07-17-2016 [facility] DIABETES PHYSICIANS, MELLITUS [facility] W/UNS COMPLICATIO NS R30090 UNSPECIFIED 07-17-2016 [facility] CYST INC UNSPECIFIED SIDE N839 NONINFLAMM 07-17-2016 [facility] D/O OVARY MEDICAL FALLOP TUBE IMAGING ASS & BROAD LIG UNS R109 UNSPECIFIED 07-17-2016 [facility] ABDOMINAL MEDICAL PAIN IMAGING ASS Z794 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-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 [facility] CURRENT USE PHYSICIANS, OF INSULIN [facility] X85017 PERSONAL 07-17-2016 [facility] HISTORY OF MEDICAL URINARY IMAGING ASS CALCULI N390 URINARY 07-09-2016 [facility]CT [facility] INFECTION INC SITE NOT SPECIFIED Q40658 PAIN IN 02-05-2016 [facility] FIRST LEFT ANKLE PODIATRY [facility] M7732 CALCANEAL 02-05-2016 [facility]ET FIRST SPUR LEFT PODIATRY FOOT [facility] M7742 METATARSALG 02-05-2016 FEET FIRST IA LEFT PODIATRY FOOT [facility] P57372 PAIN IN 02-05-2016 [facility] FIRST LEFT FOOT PODIATRY [facility] M7989 OTHER 01-17-[address] [facility] DISORDERS G5762 LESION OF 12-04-2015 FEET FIRST PLANTAR PODIATRY NERVE LEFT [facility] LOWER LIMB E119 TYPE 2 09-18-2015 [facility] DIABETES PHYSICIANS MELLITUS GROUP WITHOUT COMPLICATIO NS 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-18-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 PHYSICIANS SYNDROME GROUP UNSPECIFIED UPPER LIMB H6520 CHRONIC 06-15-2015 [facility] SEROUS PHYSICIANS OTITIS GROUP MEDIA UNSPECIFIED EAR J309 ALLERGIC 06-15-2015 [facility] RHINITIS PHYSICIANS UNSPECIFIED GROUP 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 Z6835 BODY MASS 06-15-2015 [facility] INDEX BMI PHYSICIANS 35.0-35.9 GROUP ADULT Z6836 BODY MASS 06-15-2015 [facility] INDEX BMI PHYSICIANS 36.0-36.9 GROUP ADULT Z885 ALLERGY 06-15-2015 [facility] STATUS TO PHYSICIANS NARCOTIC GROUP AGENT STATUS Z889 ALLERGY 06-15-2015 [facility] STATUS UNS PHYSICIANS RX MEDS & GROUP BIOLOG SUBSTANC STS R197 DIARRHEA 06-02-2015 [facility] UNSPECIFIED [facility] INC H6503 ACUTE 05-18-2015 [facility] SEROUS PHYSICIANS OTITIS GROUP MEDIA BILATERAL H6523 CHRONIC 05-18-2015 [facility] SEROUS [facility] OTITIS INC MEDIA BILATERAL H6693 OTITIS 05-18-2015 COMMUNITY MEDIA ANESTH OF UNSPECIFIED THE BLUE BILATERAL J320 CHRONIC 04-06-2015 [facility] MAXILLARY PHYSICIANS SINUSITIS GROUP Z6837 BODY MASS 04-06-2015 [facility] INDEX BMI PHYSICIANS 37.0-37.9 GROUP ADULT H6690 OTITIS 02-28-[facility] UNSPEC[facility] EAR J0100 ACUTE 02-28-2015 [facility] SINUSITIS HOSPITAL UNSPECIFIED R05 COUGH 02-28-2015 [facility] Z0100 ENCOUNTER 02-14-2015 [place] EXAM EYES & GRE VISION W/O ABNORMAL FIND K811 CHRONIC 02-10-2015 [facility], CHOLECYSTIT LLC IS K819 CHOLECYSTIT 02-10-2015 COMMUNITY IS ANESTH OF UNSPECIFIED THE BLUE K824 CHOLESTEROL 02-10-2015 [facility], OSIS OF LLC GALLBLADDER K828 OTHER 02-10-2015 [facility] SPECIFIED PHYSICIANS DISEASES OF GROUP GALLBLADDER R1011 RIGHT UPPER 12-27-2014 [facility]ANT [facility] PAIN IMAGING ASS R110 NAUSEA 12-27-2014 [facility] H6592 UNSPECIFIED 12-26-2014 [facility] PHYSICIANS NONSUPPURAT GROUP GEOFF OTITIS MEDIA LT EAR I341 NONRHEUMATI 12-26-2014 [facility] C MITRAL PHYSICIANS VALVE GROUP PROLAPSE I10 ESSENTIAL 12-15-2014 [facility] HYPERTENSIO INC N 9390 FOREIGN 09-27-2014 [facility] BODY IN [place] BLADDER AND ADULT & PED URETHRA 5920 CALCULUS OF 09-22-2014 [facility] KIDNEY [facility]IA GROUP PS 7935 NONSPECIFIC 09-22-2014 [facility] ABN [place] FINDING RAD ADULT & PED & OTH EXAM ORGAN 46255 DIAB W/O 09-21-2014 [place] COMP TYPE COMMUNITY II/UNS NOT HOSPITAL STATED UNCNTRL 22747 ASTHMA, 09-21-2014 [facility] UNSPECIFIED [facility] UNSPECIFIED STATUS 22710 ESOPHAGEAL 09-21-2014 [facility] REFLUX [facility] 87700 ABDOMINAL 09-21-2014 [facility] HOSPITAL SITE V148 PERSONAL 09-21-2014 [facility] HISTORY [facility] ALLERGY OT HOSPITAL SPEC MEDICINAL AGTS V5869 LONG-TERM 09-21-2014 [facility] (CURRENT) [facility] USE OF HOSPITAL OTHER MEDICATIONS 43634 OVERWEIGHT 09-16-2014 [facility] P 3559 MONONEURITI 09-16-2014 [facility] S OF [facility] UNSPECIFIED INC SITE 4240 MITRAL 09-16-2014 [facility] P 99977 CHEST PAIN 09-16-2014 [facility]NSPECIFIED [facility] INC 40751 NAUSEA WITH 09-16-2014 [facility] 7881 DYSURIA 09-16-2014 [facility] INC 61595 ABDOMINAL 09-16-2014 [place] PAIN RIGHT MEDICAL UPPER IMAGING ASS QUADRANT V700 ROUTINE 09-16-2014 [facility] GENERAL [facility] MEDICAL INC [email or web address]@HEALTH CARE FACL 1891 MALIGNANT 09-08-2014 [facility] NEOPLASM OF [place] RENAL ADULT & PED PELVIS 3829 UNSPECIFIED 07-20-2014 [facility] OTITIS PHYSICIANS MEDIA GROUP 4739 UNSPECIFIED 07-20-2014 [facility] SINUSITIS PHYSICIANS GROUP 30471 UNSPECIFIED 03-24-2014 [facility] OTALGIA PHYSICIANS GROUP 5932 ACQUIRED 03-24-2014 [facility] CYST OF [facility] [facility] 7245 UNSPECIFIED 03-24-2014 [facility] BACKACHE [place] ADULT [facility] 7295 PAIN IN 03-24-2014 [facility] SOFT PHYSICIANS TISSUES OF GROUP LIMB 97589 NEOPLASM OF 01-10-2014 [facility] UN[facility]ERT[facility] [place]IOR [place] K[place] [address] OBESITY, 01-10-2014 [facility] UNSPECIFIED [facility] 4019 UNSPECIFIED 01-10-2014 [facility] ESSENTIAL [facility] HYPERTENSIO [facility] N 591 HYDRONEPHRO 01-10-2014 [facility] SIS [place] ADULT & PED 5921 CALCULUS OF 01-10-2014 [place] URETER ANESTHESIA GROUP PS V8534 BODY MASS 01-10-2014 [facility] INDEX COMMUNITY 34.0-34.9 HOSPITAL ADULT 7880 RENAL COLIC 01-06-2014 [facility] ADULT & PED V7283 OTHER 10-18-2013 [place] SPECIFIED COMMUNITY PRE-OPERATI HOSPITA VE EXAMINATION 56901 MORBID 10-08-2013 [facility] 490 BRONCHITIS 10-08-2013 [facility] NOT [facility] SPECIFIED ACUTE OR CHRONIC 92953 EXTRINSIC 10-08-2013 [facility] ASTHMA, HOSPITAL UNSPECIFIED 74960 UNSPECIFIED 10-07-2013 [facility] PYELONEPHRI [facility] [place]IS 20993 URINARY 10-05-2013 BEINEKE BRENDAN OBSTRUCTION UNSPECIFIED 48942 ABD/PELVIC 10-05-2013 BEINEKE BRENDAN SWELLING MASS/LUMP OT SPEC SITE 08988 OTHER 08-24-2013 [facility] FATIGUE INC V720 [...] 07 08 20 10 00 WA Ac SD 16 -1 -1 .0 00 L- ti [...] AT 00 07 08 30 30 00 MI Ac EN 09 -1 -0 .0 00 L- ti OL 30 6- 4- 00 07 MA ve OL 75 20 20 48 RT 21 17 17 82 50 0 16 PH AR MG MA CY TA BL #5 ET 91 AT 00 07 30 30 00 MI Ac EN 78 -1 -0 .0 00 L- ti OL 11 5- 7- 00 07 MA ve OL 50 20 20 48 RT 61 17 17 82 50 0 16 PH AR MG MA CY TA BL #5 ET 91 AT 00 06 30 30 00 MI Ac EN 09 -1 -0 .0 00 L- ti OL 30 6- 9- 00 07 MA ve OL 75 20 20 48 RT 21 17 17 82 50 0 16 PH AR MG MA CY TA BL #5 ET 91 LO 00 05 06 60 30 00 MI Ac RA 37 -0 -0 .0 00 L- ti ZE 82 3- 2- 00 04 MA ve PA 32 20 20 53 RT M 10 17 17 02 0. 1 15 PH 5 AR MG MA CY TA BL #5 ET 91 SD 59 05 06 10 5 00 MI Ac ED 74 -0 -0 .0 00 L- ti NI 60 3- 2- 00 07 MA ve SO 17 20 20 48 RT NE 30 17 17 57 6 37 PH 10 AR MA MG CY TA #5 BL 91 ET IN 31 05 06 20 5 00 MI Ac DO 72 -1 -0 .0 00 L- ti ME 20 1- 2- 00 07 MA ve TH 54 20 20 48 RT AC 20 17 17 74 IN 1 68 PH AR 25 MA CY MG #5 CA 91 PS UL E BU 60 05 06 60 30 00 MI Ac SD 50 -0 -0 .0 00 L- ti OP 50 3- 2- 00 07 MA ve IO 15 20 20 48 RT N 80 17 17 57 HC 1 44 PH L AR 75 MA CY MG #5 TA 91 BL ET AZ 59 05 06 6. 5 00 MI Ac IT 76 -0 -0 00 00 L- ti HR 23 3- 2- 0 07 MA ve OM 06 20 20 48 RT YC 00 17 17 57 IN 1 45 PH AR 25 MA 0 CY MG #5 TA 91 BL ET ME 68 05 06 60 30 00 MI Ac TF 64 -0 -0 .0 00 L- ti OR 50 3- 2- 00 07 MA ve MO 54 20 20 48 RT N 55 17 17 57 HC 9 38 PH L AR 1, MA 00 CY 0 MG #5 91 TA BL ET AT 00 04 05 30 00 MI Ac EN 78 -1 -0 .0 00 L- ti OL 11 4- 5- 00 07 MA ve OL 50 20 20 48 RT 61 17 17 22 50 0 68 PH AR MG MA CY TA BL #5 ET 91 AT 00 03 04 30 30 00 MI Ac EN 78 -1 -0 .0 00 L- ti OL 11 5- 7- 00 07 MA ve OL 50 20 20 47 RT 61 17 17 66 50 0 31 PH AR MG MA CY TA BL #5 ET 91 AT 00 02 30 30 00 MI Ac EN 78 -1 -1 .0 00 L- ti OL 11 0- 0- 00 07 MA ve OL 50 20 20 47 RT 61 17 17 00 50 0 64 PH AR MG MA CY TA BL #5 ET 91 AT 30 00 MI Ac EN 78 -1 -1 .0 00 L- ti OL 11 3- 0- 00 07 MA ve OL 50 20 20 46 RT 61 17 17 44 50 0 00 PH AR MG MA CY TA BL #5 ET 91 AT 12 30 30 00 MI Ac EN 78 -1 -0 .0 00 L- ti OL 11 2- 9- 00 07 MA ve OL 50 20 20 45 RT 61 16 17 80 50 0 08 PH AR MG MA CY TA BL #5 ET 91 Procedures [place] [address] [facility] TRANSVAGI 7 MEDICAL NAL IMAGING ASS US PELVIC 36[address] [facility] 7 MEDICAL NONOBSTET IMAGING JOAQUIN ASS REAL-TIME IMAGE COMPLETE BLOOD 31998 [facility] COUNT 7 [facility] COMPLETE INC INC AUTO&AUTO DIFRNTL WBC COMPREHEN 74641 [facility] SIVE 7 [facility] [place] [address] [facility] ABDOMEN & 7 [facility] PELVIS INC INC W/O CONTRAST MATERIAL THERAPEUT 28964 [facility] IC 7 [facility] PROPHYLAC INC INC TIC/DX INJECTION SUBQ/IM THER 42240 [facility] PROPH/DX 7 [facility] NJX IV INC INC PUSH SINGLE/1S T SBST/DRUG CULTURE 46074 [facility] BACTERIAL 7 [facility] INC INC QUANTTATI VE COLONY COUNT URINE WALKING L4360 FEET FARRER BOOT 6 [facility] PNEUMATC PODIATRY &/ VACUUM PLLC PREFAB CUSTM FIT ADD LOW L2840 FEET FARRER EXTREM 6 [facility] ORTHOTIC PODIATRY TIB PLLC LENGTH SOCK FX/= EA MRI LOWER 15793 NICHOLASV NICHOLASV EXTREM [address] OTH/THN [facility] JT W/O CONTR MATRL RADEX 53390 FEET FARRER FOOT 6 [facility] COMPLETE PODIATRY MINIMUM 3 PLLC VIEWS RADEX 76498 [facility] FOOT 6 [facility] COMPLETE INC INC MINIMUM 3 VIEWS RADIOLOGI 70059 [facility] RICHARDS ALL C 6 MEDICAL EXAMINATI IMAGING ON [place] [address] [facility] HPYLORI 6 [facility] STOOL INC INC IADNA-DNA 08614 [facility] /RNA GI 6 [facility] PTHGN INC INC MULTIPLEX PROBE TQ -25 CUL BACT 16222 [facility] STOOL 6 [facility] AEROBIC INC INC ISOL SALMONELL A&SHIGELL BLOOD 93106 [facility] OCCULT 6 [facility] PEROXIDAS INC INC E ACTV QUAL FECES 1-3 SPEC GLUC BLD 19198 [facility] GLUC MNTR 6 [facility] DEV INC INC CLEARED FDA SPEC HOME USE ANES 48176 COMMUNITY BRETT XTRNL MID 6 ANESTH YFN & INNER OF THE EAR W/BX BLUE TYMPANOTO MY COLLECTIO 70008 [facility] N VENOUS 6 [facility] BLOOD INC INC VENIPUNCT URE BLOOD 24867 [facility] COUNT 6 [facility] COMPLETE INC INC AUTO&AUTO DIFRNTL WBC BASIC 96074 [facility] METABOLIC 6 [facility] [place] T[place] [address] [facility] INFUSION 6 [facility] THERAPY/P INC INC ROPHYLAXI S /DX 1ST TO 1 HR THERAPEUT 38325 [facility] CIARA IC 6 [facility] INJECTION INC INC IV PUSH EACH NEW DRUG URINE 50575 [facility] 6 [facility] TEST INC [place] [address] [facility] INFUSION 6 [facility] THERAPY INC INC PROPHYLAX IS/DX EA HOUR TYMPANOST 85144 [facility] CIARA PATRICK 6 [facility] GENERAL INC INC ANESTHESI A IAADIADOO 29391 [facility] ISSA 5 [facility] DETERMINA 55000 [facility] 5 GRE GRE REFRACTIV E STATE OPHTH 06700 [facility] 5 GRE GRE XM&EVAL COMPRHNSV ESTAB PT 1/> LEVEL III 84117 [facility], ZOILA RADHA SURG 5 [facility] PATHOLOGY GROSS&[place] [address] [facility] INFUSION 5 [facility] THERAPY/P INC INC ROPHYLAXI S /DX 1ST TO 1 HR THERAPEUT 77493 [facility] U[facility] IC 5 [facility] INJECTION [place] [address] [facility] INFUSION 5 [facility] THERAPY INC INC PROPHYLAX IS/DX EA HOUR COLLECTIO 79291 [facility] N VENOUS 5 [facility]OS[facility] BLOOD INC INC VENIPUNCT URE INJECTION J2405 [facility] URBINA 5 [facility] ONDANSETR INC INC ON HCL PER 1 MG BLOOD 08411 [facility] COUNT 5 [facility] COMPLETE INC INC AUTO&AUTO DIFRNTL WBC ANES 12085 [facility] IN[facility]AP[facility] 5 ANESTH SHE TONEAL OF THE UPPER BLUE ABDOMEN W/LAPS NOS LAPAROSCO 53439 [facility] PY SURG 5 [facility] CHOLECYST INC INC ECTOMY GLUC BLD 48812 [facility] GLUC MNTR 5 [facility] DEV INC INC CLEARED FDA SPEC HOME USE BLOOD 43795 [facility] COUNT 5 [facility] COMPLETE INC INC AUTO&AUTO DIFRNTL WBC COMPREHEN 57515 [facility] SIVE 5 [facility] METABOLIC INC INC PANEL COLLECTIO 65252 [facility] N VENOUS 5 [facility] BLOOD INC INC VENIPUNCT URE URINE 73950 [facility]INA 5 [facility] TEST INC INC VISUAL COLOR CMPRSN METHS ECG 48611 [facility] GOLDEN JR ROUTINE 5 [facility] W/LEAST P 12 LDS I&R ONLY ECG 73312 [facility] ROUTINE 5 [facility] ECG INC INC W/LEAST 12 LDS TRCG ONLY W/O I&R HEPATOBIL 27907 [facility] SYST 5 [facility] IMAG INC INC INC GB W/PHARMA INTERVENJ INJECTION J2805 [facility] 5 [facility] SINCALIDE INC INC 5 MICROGRAM S LIPID 54208 [facility] PANEL 5 [facility] INC INC HEMOGLOBI 44899 [facility] U[facility] N 5 [facility] GLYCOSYLA INC INC RASHAD A1C GENERAL 88138 [facility] HEALTH 5 [facility] [address] [facility] U[facility] THYROXINE 5 [facility] TOTAL INC INC CYSTO 57954 [facility] W/SIMPLE 5 [facility] REMOVAL ADULT & STONE & PED STENT CYSTO/URE 34316 [facility] TERO 5 [place] [facility] W/LITHOTR ADULT & IPSY PED &INDWELL STENT INSRT URINE 98231 [facility] [facility] 5 [facility] VISUAL COLOR CMPRSN METHS X-RAY 22290 [facility] [facility] URINARY 5 [facility] EXAM WITH CONTRAST MATERIAL INTRO 01101 [place] URETERAL 5 [facility] T PRQ RS&I DILATION 38388 [facility]ED NEPHROSTO 5 [place] [facility] MY/URETER ADULT & /URETHRA PED RS&I STENT C2617 [facility] NON-COR 5 [facility] WITHOUT DELIVERY SYSTEM GLUC BLD 83925 [facility]AON GLUC MNTR 5 [facility] CLEARED FDA SPEC HOME USE ANES 25151 [place] CHINEDU TRURL 5 ANESTHESI HERBER FRAGMNTJ A GROUP MANJ&/[place] [address] [facility] ABDOMINAL 5 [facility] REAL INC INC TIME W/IMAGE LIMITED URNLS DIP 83021 [facility] 5 [facility] STICK/TAB INC INC LET REAGENT AUTO MICROSCOP Y CULTURE 91780 [facility] BACTERIAL 5 [facility]OS[facility] INC INC QUANTTATI VE COLONY COUNT URINE COLLECTIO 57206 [facility] N VENOUS 5 [facility] [place] [address] [facility] AMYLASE 5 [facility] [place] [place] [address] [facility] LIPASE 5 [facility] INC INC ECG 30702 [facility] ROUTINE 5 [facility] ECG INC INC W/LEAST 12 LDS TRCG ONLY W/O I&R BLOOD 35207 [facility] COUNT 5 [facility]OS[facility] COMPLETE INC INC AUTO&AUTO DIFRNTL WBC COMPREHEN 39093 [facility] SIVE 5 [facility] METABOLIC INC INC PANEL ECG 32464 [facility] GOLDEN JR ROUTINE 5 [facility] W/LEAST P 12 LDS I&[place] [address] [facility] ALFRED RETROPERI 5 [place] [facility] TONEAL ADULT & REAL TIME PED W/IMAGE COMPLETE ANES 86871 [place] DEPA RAY TRURL 4 ANESTHESI FRAGMNTJ A GROUP MANJ&/RMV PS L URETERAL CALCULUS GLUC BLD 57036 GREY GREY GLUC MNTR 4 [facility] CLEARED FDA SPEC HOME USE CYSTO 53121 [facility]ED W/INSERT 4 [facility] MIG[facility]EL URETERAL ADULT & STENT PED CYTP 12251 [facility], ELIZABET [facility]CTV 4 LLC JOAQUIN CELL ENHANCEME NT INTERPJ XCPT C/V GUIDE C1769 GREY PERSONON WIRE 4 [facility] STENT C2617 [facility] EDMONDS NON-COR 4 [facility] WITHOUT DELIVERY SYSTEM CYSTO/URE 16587 BOJAYDEN PERSONON TERO 4 [facility] IPSY &INDWELL STENT INSRT CYSTO 42614 CENTRAL ALFRED W/URETERO 4 LANG MIGUEL SCOPY ADULT & W/LITHOTR PED IPSY URINE 66281 GREY PERSONON 4 [facility] VISUAL COLOR CMPRSN METHS DILATION 24685 CENTRAL ALFRED NEPHROSTO 4 [facility] MY/URETER ADULT & /URETHRA PED RS&I INTRO 32638 BOJAYDEN PERSONON URETERAL 4 [facility] CATH/[facility] T PRQ RS&I ECG 04229 NAIF BROOKS BROOKS NAIF ROUTINE 4 MD ECG CONSULTIN W/LEAST G SRV 12 LDS I&R ONLY BLOOD 41610 GREY PERSONON COUNT [address] [facility] AUTO&AUTO DIFRNTL WBC ECG 29849 BOKELSEYON BOURBON ROUTINE 4 [facility] W/LEAST 12 LDS TRCG ONLY W/O I&R COMPREHEN 33587 GREY PERSONON SIVE 4 [facility] PANEL URNLS DIP 40495 [place]OUR[place] BOURB[place] 4 [facility] STICK/TAB HOSPITAL HOSPITAL LET REAGENT AUTO MICROSCOP Y GLUC BLD 67983 [facility] GLUC MNTR 4 PHYSICIAN PHYSICIAN DEV S GROUP S GROUP CLEARED FDA SPEC HOME USE CYSTO 18088 CENTRAL ALFRED W/SIMPLE 4 BIBY MIGUEL REMOVAL ADULT & STONE & PED STENT GLUC BLD 76253 [place] GLUC MNTR 4 [facility] CLEARED FDA SPEC HOME USE CYSTO 25489 CENTRAL ALFRED W/INSERT 4 [facility] MIGUEL URETERAL ADULT & STENT PED LITHOTRIP 15856 CENTRAL ALFRED SY 4 [facility] RIVERA XTRCORP ADULT & SHOCK PED WAVE ANES 14095 [facility] MANDUJANO DES LITHOTRP 4 ANESTHESI XTRCORP A GROUP SHOCK PS WAVE W/O WATER BATH CULTURE 85061 [facility] BACTERIAL 4 N N [facility] HOSPITA VE COLONY COUNT URINE COMPREHEN 77970 [facility] SIVE 4 N N METABOLIC [facility] PANEL HOSPITA HOSPITA URNLS DIP 64860 [facility] 4 N N STICK/TAB [facility] LET HOSPITA HOSPITA REAGENT AUTO MICROSCOP Y BLOOD 50202 [facility] COUNT 4 N N COMPLETE [facility] AUTO&AUTO HOSPITA HOSPITA DIFRNTL WBC ECG 62358 [facility] ROUTINE 4 N N ECG [facility] W/LEAST HOSPITA HOSPITA 12 LDS TRCG ONLY W/O I&R RADEX 89320 BEINEKE BEINEKE ABDOMEN 1 4 BRENDAN BRENDAN ANTEROPOS TERIOR VIEW RADEX [address] ANTEROPOS TERIOR VIEW GLUCOSE [address] REAGENT STRIP INJECTION J2405 [address] [place] ON HCL PER 1 MG ECG 49214 [facility] PRETTY ROUTINE 4 PHYSICIAN ECG GROUP, W/LEAST INC. 12 LDS I&R ONLY CYSTO 34320 KIM ROSADO JR W/INSERT 4 [facility] STENT PSC INJECTION J2250 [address] [place] HCL PER 1 MG CYSTO 56797 [facility] W/O [address] [place] [address] RMVL URETERAL STONE ANES 62327 ANESTHESI KAREEN PATEL 4 A MARIO FRAGMNTJ ASSOCIATE [facility]&/RMV S PSC L URETERAL CALCULUS INJECTION J1956 [address] [place] JAILENE 250 MG INJECTION J2001 [address] LIDOCAINE HCL INTRAVENO US INFUS 10 MG RINGERS [id number] [facility] LACTATE [address] [place] [address] INFUSION UP TO 1000 CC INJECTION [id number] [address] KETOROLAC TROMETHAM INE PER 15 MG INJECTION [id number] [facility] FENTANYL [address] [place] [address] CITRATE 0.1 MG CULTURE [id number] [facility] BACTERIAL [address] [place] [address] QUANTTATI VE COLONY COUNT URINE GONADOTRO 41213 [facility] PIN [address] [place] [address] CHORIONIC QUALITATI VE 3D 75482 [facility] RENDERING 4 [facility] INC INC W/INTERP& POSTPROC DIFF WORK STATION INJECTION [id number] [facility] 4 [facility] ONDANSETR INC INC ON HCL PER 1 MG COMPREHEN 08971 [facility] SIVE 4 [facility] METABOLIC INC INC PANEL URNLS DIP 61050 [facility] 4 [facility] STICK/TAB INC INC LET REAGENT AUTO MICROSCOP Y THERAPEUT 56989 [facility] IC 4 [facility] INJECTION INC [place] [address] [facility] LIPASE 4 [facility] INC INC URINE 86126 [facility] 4 [facility] TEST INC INC VISUAL COLOR CMPRSN METHS BLOOD 49667 [facility] COUNT 4 [facility] COMPLETE INC INC AUTO&[place] [address] BEINEKE BEINEKE ABDOMEN & 4 BRENDAN BRENDAN PELVIS W/[place] [address] [facility] AMYLASE 4 [facility] INC INC THER 34933 [facility] PROPH/DX 4 [facility] NJX IV INC INC PUSH SINGLE/1S T SBST/[place] [address] [facility] VITAMIN A 4 [facility] [place] [address] [facility] THYROXINE 4 [facility] TOTAL INC INC CYANOCOBA 08456 [facility] RENNY 4 [facility] VITAMIN INC INC B-12 HEMOGLOBI 94313 [facility] N 4 [facility] GLYCOSYLA INC INC RASHAD A1C SEDIMENTA 06360 [facility] TION RATE 4 [facility] RBC INC INC NON-AUTOM ATED LIPID 68511 [facility] PANEL 4 [facility] INC INC GENERAL 04234 [facility] PANEL INC INC Encounters Encounter Start End Date Code Location Performer Type Date HOSPITAL [facility] - [facility] 7 [facility] T EMERGENCY 60711 [facility] 7 7 [facility] INC T VISIT MODERATE [facility]VERITY HOSPITAL [facility] - 7 7 [facility] OUTPATIEN INC T EMERGENCY 77549 [facility]AK HAMMER DEPT 7 7 PHYSICIAN VISIT S, [facility] HIGH SEVERITY& THREAT [facility] - 7 7 [facility] OUTPATIEN INC T OFFICE 37368 [facility]ET [facility] OUTPATIEN 6 6 FIRST JIGNESH T VISIT PODIATRY 15 [facility] MINUT[facility] OFFICE 43037 [facility] OUTPATIEN 6 6 FIRST JIGNESH T NEW 45 PODIATRY MINUTES [facility] - 6 6 [facility] INC T OFFICE 52572 [facility] DELL OUTPATIEN 6 6 PHYSICIAN SHILA T VISIT S GROUP 25 MINUTES OFFICE 80259 [facility] OLGUIN OUTPATIEN 6 6 PHYSICIAN T VISIT S GROUP 15 MINUTES HOSPITAL [facility] - 6 6 [facility] INC T OFFICE 92960 [facility] DELL OUTPATIEN 6 6 PHYSICIAN SHILA T VISIT S GROUP 10 MINUTES HOSPITAL [facility] - 6 6 [facility] OUTPATIEN [facility] T OFFICE 42453 [facility] ISSA OUTPATIEN 5 5 [facility] VISIT H[facility] 15 MINUTES [facility]PITAL [facility] - 5 5 [facility]EN [facility] - 5 5 [facility] OUTPATIEN [facility] T OFFICE 36656 [facility] DANAY IBARRA CONSULTAT 5 5 PHYSICIAN ION S GROUP NEW/ESTAB PATIENT 40 MIN HOSPITAL [facility] - 5 5 [facility] OUTPATIEN [facility] T [facility] 6[facility] PHYSICIAN ELLEN T NEW 45 S GROUP MINUTES HOSPITAL [facility] 5 5 [facility] OUTPATIEN [facility] [place] - 5 5 [facility] - 5 5 [facility]EN [facility] T OFFICE 78263 [facility] 5 5 [place] [facility] VIS[facility] ADULT & 25 PED MINUTES OFFICE 70466 [facility] DELL OUTPATIEN 5 5 PHYSICIAN SHILA T VISIT S GROUP 15 MINUTES OFFICE 51154 [facility] DELL OUTPATIEN 5 5 PHYSICIAN SHILA T VISIT S GROUP 15 MINUTES OFFICE 06034 [facility] 5 5 [place] [facility] VISIT ADULT & 25 PED MINUTES [facility] [place] - 4 4 [facility] [place] - 4 4 [facility] T OFFICE 06478 [facility] 4 4 [place] [facility] T VISIT ADULT & 15 PED MINUT[facility]ICE 76888 [facility] PHYS[facility] SHILA T [facility]ISIT S GROUP 15 MINUTES [facility] [place] - 4 4 [facility] OFFICE 43882 [facility] CONSULTAT 4 4 [place] [facility] ION ADULT & NEW/ESTAB PED PATIENT 40 MIN [facility] 4 4 [facility] HOSPITA OFFICE 05692 [facility] 4 4 [facility] 15 P MINUTES HOSPITAL [facility] 4 4 [facility] 40727 [facility] [address] [facility] 20 HOSPITAL MINUTES P EMERGENCY 67630 [facility] 4 4 [facility] T VISIT MODERATE [facility]VERITY EMERGENCY 22660 [facility] 4 4 [facility] VISIT PHYSI HIGH/URGE NT [facility]VERITY HOSPITAL [facility] - 4 4 [facility]EN [facility] 4 4 [facility]
--- OUTSIDE RECORDS SUMMARY | 2016-12-28 08:34 | External Medical Summary Rpt | CCD ---
Author Author , ASUNCION ROLAND Address Unknown Phone [email or web address] Care Team Providers Care Esthetician Spa Name Role Phone NOE BRENDAN, NOE Unavailable Unavailable BRENDAN RICHARDS, RICHARDS Unavailable Unavailable RICHARDS ALL, RICHARDS ALL Unavailable Unavailable [facility] Unavailable Unavailable HOSPITAL, [facility] ALFRED MIGUEL, Unavailable Unavailable ALFRED MIGUEL [facility] Unavailable Unavailable ADULT & PED, [facility] ZOILA RADHA, ZOILA RADHA Unavailable Unavailable BROOKS NAIF, BROOKS NAIF Unavailable Unavailable [facility] ALONZO JR ART, ALONZO Unavailable Unavailable JR ART JEAN, JEAN Unavailable Unavailable JEAN ULISES, Unavailable Unavailable JEAN ULISES DEPA RAY, DEPA RAY Unavailable Unavailable FARRER JIGNESH, FARRER Unavailable Unavailable JIGNESH [facility] Un[facility]available [facility], [facility] FRYMAN EUG, FRYMAN Unavailable Unavailable EUG DELL SHILA, DELL Unavailable Unavailable SHILA [facility] Unavailable Unavailable HOSPITA, [facility] Unavailable Unavailable INC, [facility] Unavailable Unavailable HOSPITAL, [facility] Unavailable Unavailable HOSPITAL P, [facility] P [facility], Unavailable Unavailable [facility] Un[facility] Unavailable GROUP PS, [facility] Unavailable Un[facility], [facility] OLGUIN, OLGUIN Unavailable Unavailable OLGUIN ELLEN, OLGUIN Unavailable Unavailable ELLEN CHANTEL JR DWI, CHANTEL Unavailable Unavailable JR DWI ANNIE PRETTY, ANNIE PRETTY Unavailable Unavailable MCNEAL JOAQUIN, MCNEAL Unavailable Unavailable JOAQUIN ADEOLA GRE, Unavailable Unavailable ADEOLA GRE ADEOLA GRE, Unavailable Unavailable ADEOLA CRAVEN, CHINEDU Unavailable Unavailable [facility] Unavailable Un[facility], [facility] Unavailable Unavailable LABS, LLC [facility], Unavailable Unavailable PLL[facility], [facility] DANAY TOD, DANAY TOD Unavailable Unavailable SADEK, SADEK Unavailable Unavailable DELBERT DES, DELBERT DES Unavailable Unavailable SOKAN BAB, SOKAN BAB Unavailable Unavailable [facility], Unavailable Unavailable BRONX SHE [facility], Unavailable Unavailable [facility] BRETT COULTER, BRETT Unavailable Unavailable YFN MATHUR MARIO, KAREEN Unavailable Unavailable MARIO Purpose Continuity of Care Document - 07-08-2013 through 2016 Problems Code Diagnosis DOS Provider Status [id number] UNSPECIFIED 07-22-2016 [place] [facility] CYST LEFT IMAGING ASS SIDE E1165 TYPE 2 07-17-2016 [facility] MELLITUS INC WITH HYPERGLYCEM IA E118 TYPE 2 07-17-2016 [facility] DIABETES PHYSICIANS, MELLITUS [facility] W/UNS COMPLICATIO NS [id number] UNSPECIFIED 07-17-2016 [facility] CYST INC UNSPECIFIED SIDE N839 NONINFLAMM 07-17-2016 [place] D/O OVARY MEDICAL FALLOP TUBE IMAGING ASS & BROAD LIG UNS R109 UNSPECIFIED 07-17-2016 [place] ABDOMINAL [facility]ICAL PAIN IMAGING ASS Z794 CHEMISTS 07-17-2016 [facility] CURRENT USE PHYSICIANS, OF INSULIN [facility] Q10651 PERSONAL 07-17-2016 [place] HISTORY OF MEDICAL URINARY IMAGING ASS CALCULI N390 URINARY 07-09-2016 [facility] TRACT [facility] INFECTION INC SITE NOT SPECIFIED F74531 PAIN IN 02-05-2016 [facility] LEFT ANKLE PODIATRY [facility] M7732 CALCANEAL 02-05-2016 [facility] SPUR LEFT PODIATRY FOOT [facility] M7742 METATARSALG 02-05-2016 [facility] IA LEFT PODIATRY FOOT [facility] [id number] PAIN IN 02-05-2016 [facility] LEFT FOOT PODIATRY [facility] M7989 OTHER 01-17-[address] [facility] DISORDERS G5762 LESION OF 12-04-2015 [facility] PLANTAR PODIATRY NERVE LEFT [facility] LOWER LIMB E119 TYPE 2 09-18-2015 [facility] DIABETES PHYSICIANS MELLITUS GROUP WITHOUT COMPLICATIO NS 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-18-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 PHYSICIANS SYNDROME GROUP UNSPECIFIED UPPER LIMB H6520 CHRONIC 06-15-2015 [facility] SEROUS PHYSICIANS OTITIS GROUP MEDIA UNSPECIFIED EAR J309 ALLERGIC 06-15-2015 [facility] RHINITIS PHYSICIANS UNSPECIFIED GROUP 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 Z6835 BODY MASS 06-15-2015 [facility] INDEX BMI PHYSICIANS 35.0-35.9 GROUP ADULT Z6836 BODY MASS 06-15-2015 [facility] INDEX BMI PHYSICIANS 36.0-36.9 GROUP ADULT Z885 ALLERGY 06-15-2015 [facility] STATUS TO PHYSICIANS NARCOTIC GROUP AGENT STATUS Z889 ALLERGY 06-15-2015 [facility] STATUS UNS PHYSICIANS RX MEDS & GROUP BIOLOG SUBSTANC STS R197 DIARRHEA 06-02-2015 [facility] UNSPECIFIED [facility] INC H6503 ACUTE 05-18-2015 [facility] SEROUS PHYSICIANS OTITIS GROUP MEDIA BILATERAL H6523 CHRONIC 05-18-2015 [facility] SEROUS [facility] OTITIS INC MEDIA BILATERAL H6693 OTITIS 05-18-2015 COMMUNITY MEDIA ANESTH OF UNSPECIFIED THE BLUE BILATERAL J320 CHRONIC 04-06-2015 [facility] MAXILLARY PHYSICIANS SINUSITIS GROUP Z6837 BODY MASS 04-06-2015 [facility] INDEX BMI PHYSICIANS 37.0-37.9 GROUP ADULT H6690 OTITIS 02-28-2015 [facility] HOSPITAL UNSPECIFIED EAR J0100 ACUTE 02-28-2015 [facility] SINUSITIS HOSPITAL UNSPECIFIED R05 COUGH 02-28-2015 [facility] Z0100 ENCOUNTER 02-14-2015 [facility] EXAM EYES & GRE VISION W/O ABNORMAL FIND K811 CHRONIC 02-10-2015 [facility], CHOLECYSTIT LLC IS K819 CHOLECYSTIT 02-10-2015 COMMUNITY IS ANESTH OF UNSPECIFIED THE BLUE K824 CHOLESTEROL 02-10-2015 [facility], OSIS OF LLC GALLBLADDER K828 OTHER 02-10-2015 [facility] SPECIFIED PHYSICIANS DISEASES OF GROUP GALLBLADDER R1011 RIGHT UPPER 12-27-2014 [place] QUADRANT [facility]ICAL PAIN IMAGING ASS R110 NAUSEA 12-27-2014 [facility] H6592 UNSPECIFIED 12-26-2014 [facility] PHYSICIANS NONSUPPURAT GROUP GEOFF OTITIS MEDIA LT EAR 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 VALVE GROUP PROLAPSE I10 ESSENTIAL 12-15-2014 [facility] PRIMARY [facility] HYPERTENSIO INC N 9390 FOREIGN 09-27-2014 [facility] IN [place] BLADDER AND ADULT & PED URETHRA 5920 CALCULUS OF 09-22-2014 [place] K[facility]NEY ANESTHESIA GROUP PS 7935 NONSPECIFIC 09-22-2014 [facility] ABN [place] FINDING RAD ADULT & PED & OTH EXAM ORGAN 67910 DIAB W/O 09-21-2014 [place] COMP TYPE COMMUNITY II/UNS NOT HOSPITAL STATED UNCNTRL 14309 ASTHMA, 09-21-2014 [facility]NSPEC[facility] STATUS 23059 ESOPHAGEAL 09-21-2014 [facility] REFLUX [facility] 73968 ABDOMINAL 09-21-2014 [facility] PAIN, COMMUNITY UNSPECIFIED HOSPITAL SITE V148 PERSONAL 09-21-2014 [place] HISTORY [facility] ALLERGY OT HOSPITAL SPEC MEDICINAL AGTS V5869 LONG-TERM 09-21-2014 [place] (CURRENT) [facility] USE OF HOSPITAL OTHER MEDICATIONS 29468 OVERWEIGHT 09-16-2014 [facility] P 3559 MONONEURITI 09-16-2014 [facility] S OF [facility] UNSPECIFIED INC SITE 4240 MITRAL 09-16-2014 [facility] P 99742 CHEST PAIN 09-16-2014 [facility] UNSPECIFIED [facility] H[facility] INC 02140 NAUSEA WITH 09-16-2014 [place] VOMITING [facility]ING ASS 7881 DYSURIA 09-16-2014 [facility] HOSP INC 91878 ABDOMINAL 09-16-2014 [place] PAIN RIGHT MEDICAL UPPER IMAGING ASS QUADRANT V700 ROUTINE 09-16-2014 [facility] MEDICAL INC EXAM@HEALTH CARE FACL 1891 MALIGNANT 09-08-2014 [facility] NEOPLASM OF [place] RENAL ADULT & PED PELVIS 3829 UNSPECIFIED 07-20-2014 [facility] OTITIS PHYSICIANS MEDIA GROUP 4739 UNSPECIFIED 07-20-2014 [facility] SINUSITIS PHYSICIANS GROUP 64436 UNSPECIFIED 03-24-2014 [facility] OTALGIA PHYSICIANS GROUP 5932 ACQUIRED 03-24-2014 [facility] CYST OF [place] [facility] ADULT [facility] PED 7245 UNSPECIFIED 03-24-2014 [facility] BACKACHE [place] ADULT & PED 7295 PAIN IN 03-24-2014 [facility] SOFT PHYSICIANS TISSUES OF GROUP LIMB 41262 NEOPLASM OF 01-10-2014 [facility] [place]IOR [place] [address] OBESITY, 01-10-2014 [place] UNSPECIFIED [facility] HOSPITAL 4019 UNSPECIFIED 01-10-2014 [place] ESSENTIAL [facility] HYPERTENSIO [facility] N 591 HYDRONEPHRO 01-10-2014 [facility] SIS [place] ADULT & PED 5921 CALCULUS OF 01-10-2014 [place] URETER ANESTHESIA GROUP PS V8534 BODY MASS 01-10-2014 [place] INDEX [facility] 34.0-34.9 HOSPITAL ADULT 7880 RENAL COLIC 01-06-2014 [facility] ADULT & PED V7283 OTHER 10-18-2013 [place] SPECIFIED COMMUNITY PRE-OPERATI HOSPITA VE EXAMINATION 03385 MORBID 10-08-2013 [facility] 490 BRONCHITIS 10-08-2013 [facility] SPECIFIED ACUTE OR CHRONIC 50403 EXTRINSIC 10-08-2013 [facility] ASTHMA, [facility] UNSPECIFIED 72056 UNSPECIFIED 10-07-2013 [facility] URINARY 10-05-2013 [facility] BRENDAN OBSTRUCTION UNSPECIFIED 42217 ABD/PELVIC 10-05-2013 BEINEKE BRENDAN SWELLING MASS/LUMP OT SPEC SITE 91772 OTHER 08-24-2013 [facility] FATIGUE INC V720 EXAMINATION 07-08-2013 [facility] OF EYES GRE AND VISION Medications Na ND Rx Da Fi Fi [...] LO 00 08 09 60 30 00 LA Ac RA 37 -0 -0 .0 00 L- ti ZE 82 1- 1- 00 04 MA ve PA 32 20 20 53 RT M 10 17 17 02 0. 1 15 PH 5 AR MG MA CY TA BL #5 ET 91 NA 65 07 08 20 10 00 LA Ac AZ 16 -1 -1 .0 00 L- ti [...] AT 00 07 08 30 30 00 LA Ac EN 09 -1 -0 .0 00 L- ti OL 30 6- 4- 00 07 MA ve OL 75 20 20 48 RT 21 17 17 82 50 0 16 PH AR MG MA CY TA BL #5 ET 91 AT 00 06 07 30 30 00 WA Ac EN 78 -1 -0 .0 00 L- ti OL 11 5- 7- 00 07 MA ve OL 50 20 20 48 RT 61 17 17 82 50 0 16 PH AR MG MA CY TA BL #5 ET 91 AT 00 05 06 30 30 00 LA Ac EN 09 -1 -0 .0 00 L- ti OL 30 6- 9- 00 07 MA ve OL 75 20 20 48 RT 21 17 17 82 50 0 16 PH AR MG MA CY TA BL #5 ET 91 AZ 59 05 06 6. 5 00 LA Ac IT 76 -0 -0 00 00 L- ti HR 23 3- 2- 0 07 MA ve OM 06 20 20 48 RT YC 00 17 17 57 IN 1 45 PH AR 25 MA 0 CY MG #5 TA 91 BL ET ME 68 05 06 60 30 00 LA Ac TF 64 -0 -0 .0 00 L- ti OR 50 3- 2- 00 07 MA ve AK 54 20 20 48 RT N 55 17 17 57 HC 9 38 PH L AR 1, MA 00 CY 0 MG #5 91 TA BL ET LO 00 05 06 60 30 00 LA Ac RA 37 -0 -0 .0 00 L- ti ZE 82 3- 2- 00 04 MA ve PA 32 20 20 53 RT M 10 17 17 02 0. 1 15 PH 5 AR MG MA CY TA BL #5 ET 91 AZ 59 05 06 10 5 00 LA Ac ED 74 -0 -0 .0 00 L- ti NI 60 3- 2- 00 07 MA ve SO 17 20 20 48 RT NE 30 17 17 57 6 37 PH 10 AR MA MG CY TA #5 BL 91 ET IN 31 05 06 20 5 00 LA Ac DO 72 -1 -0 .0 00 L- ti ME 20 1- 2- 00 07 MA ve TH 54 20 20 48 RT AC 20 17 17 74 IN 1 68 PH AR 25 MA CY MG #5 CA 91 PS UL E BU 60 05 06 60 30 00 LA Ac AZ 50 -0 -0 .0 00 L- ti OP 50 3- 2- 00 07 MA ve IO 15 20 20 48 RT N 80 17 17 57 HC 1 44 PH L AR 75 MA CY MG #5 TA 91 BL ET AT 00 04 05 30 30 00 LA Ac EN 78 -1 -0 .0 00 L- ti OL 11 4- 5- 00 07 MA ve OL 50 20 20 48 RT 61 17 17 22 50 0 68 PH AR MG MA CY TA BL #5 ET 91 AT 00 03 04 30 30 00 LA Ac EN 78 -1 -0 .0 00 L- ti OL 11 5- 7- 00 07 MA ve OL 50 20 20 47 RT 61 17 17 66 50 0 31 PH AR MG MA CY TA BL #5 ET 91 AT 00 02 03 30 30 00 LA Ac EN 78 -1 -1 .0 00 L- ti OL 11 0- 0- 00 07 MA ve OL 50 20 20 47 RT 61 17 17 00 50 0 64 PH AR MG MA CY TA BL #5 ET 91 AT 00 01 02 30 30 00 LA Ac EN 78 -1 -1 .0 00 L- ti OL 11 3- 0- 00 07 MA ve OL 50 20 20 46 RT 61 17 17 44 50 0 00 PH AR MG MA CY TA BL #5 ET 91 AT 00 12 01 30 30 00 LA Ac EN 78 -1 -0 .0 00 L- ti OL 11 2- 9- 00 07 MA ve OL 50 20 20 45 RT 61 16 17 80 50 0 08 PH AR MG MA CY TA BL #5 ET 91 Procedures Procedure [place] [address] [facility] TRANSVAGI 7 [facility] NAL INC INC US PELVIC 22169 [place] JEAN 7 MEDICAL NONOBSTET IMAGING JOAQUIN ASS REAL-TIME IMAGE COMPLETE THERAPEUT 11224 [facility] IC 7 [facility] PROPHYLAC INC INC TIC/DX INJECTION SUBQ/IM THER 51064 [facility] PROPH/DX 7 [facility] NJX IV INC INC PUSH SINGLE/1S T SBST/DRUG COMPREHEN 44898 [facility] SIVE 7 [facility] [address] [place] RICHARDS ABDOMEN & 7 MEDICAL PELVIS IMAGING W/O ASS CONTRAST MATERIAL BLOOD 34420 [facility] COUNT 7 [facility] COMPLETE INC INC AUTO&AUTO DIFRNTL WBC CULTURE 87166 [facility] BACTERIAL 7 [facility] INC INC QUANTTATI VE COLONY COUNT URINE WALKING L4360 FEET [facility] BOOT 6 [facility] PNEUMATC PODIATRY &/ VACUUM PLLC PREFAB CUSTM FIT ADD LOW L2840 FEET [facility]ER EXTREM 6 [facility] ORTHOTIC PODIATRY TIB PLLC LENGTH SOCK FX/= EA MRI LOWER 85626 LUIS FERNANDO GOULD EXTREM [address] OTH/THN [facility] JT W/O CONTR MATRL RADEX 91397 FEET [facility] FOOT 6 [facility] COMPLETE PODIATRY MINIMUM 3 PLLC VIEWS RADEX 79079 [facility]AR[facility]ARLOS [facility] FOOT 6 [facility] COMPLETE INC INC MINIMUM 3 VIEWS RADIOLOGI 62302 [place] RICHARDS ALL C 6 MEDICAL EXAMINATI IMAGING ON FOOT 2 ASS VIEWS CUL BACT 95603 [facility] STOOL 6 [facility] AEROBIC INC INC ISOL SALMONELL A&SHIGELL BLOOD 89704 [facility] OCCULT 6 [facility] PEROXIDAS INC INC E ACTV QUAL FECES 1-3 [place] [address] [facility] HPYLORI 6 [facility] STOOL INC INC IADNA-DNA 80874 [facility] /RNA GI 6 [facility] PTHGN INC INC MULTIP[place] TQ 12-25 [place] [address] [facility] INFUSION 6 [facility] THERAPY/P INC INC ROPHYLAXI S /DX 1ST TO 1 HR BASIC 95068 [facility] METABOLIC 6 [facility] [place] T[place] [address] [facility] INFUSION 6 [facility] THERAPY INC INC PROPHYLAX IS/DX EA HOUR COLLECTIO 37232 [facility] N VENOUS 6 [facility] BLOOD INC INC VENIPUNCT URE THERAPEUT 62680 [facility] U[facility] IC 6 [facility] INJECTION INC INC IV PUSH EACH NEW DRUG GLUC BLD 07198 [facility] GLUC MNTR 6 [facility] DEV INC INC CLEARED FDA SPEC HOME USE URINE 89280 [facility] 6 [facility] TEST INC INC VISUAL COLOR CMPRSN METHS ANES 28813 COMMUNITY BRETT XTRNL MID 6 ANESTH YFN & INNER OF THE EAR W/BX BLUE TYMPANOTO MY TYMPANOST 44227 [facility] OLGUIN PATRICK 6 PHYSICIAN ELLEN GENERAL S GROUP ANESTHESI A BLOOD 21334 [facility] COUNT 6 [facility] COMPLETE INC INC AUTO&AUTO DIFRNTL WBC IAADIADOO 37138 [facility] ISSA 5 [facility] [address] [facility] 5 GRE GRE REFRACTIV E STATE OPHTH 92800 [facility] 5 GRE GRE XM&EVAL COMPRHNSV ESTAB PT 1/> INJECTION J2405 [facility] 5 [facility] ONDANSETR INC INC ON HCL PER 1 MG COLLECTIO 74566 [facility] N VENOUS 5 [facility] [address] [facility] U[facility] INFUSION 5 [facility] THERAPY/P INC INC ROPHYLAXI S /DX 1ST TO 1 HR THERAPEUT 79025 [facility] U[facility] IC 5 [facility]OS[facility] INJECTION INC INC IV PUSH EACH NEW DRUG LEVEL III 66414 [facility] SURG 5 [facility] PATHOLOGY GROSS&[place] [address] [facility] INFUSION 5 [facility] THERAPY INC INC PROPHYLAX IS/DX EA HOUR BLOOD 43768 [facility] COUNT 5 [facility] COMPLETE INC INC AUTO&AUTO DIFRNTL WBC ANES 97342 [facility] 5 ANESTH SHE TONEAL OF THE UPPER BLUE ABDOMEN W/LAPS NOS GLUC BLD 87063 [facility] GLUC MNTR 5 [facility] DEV INC INC CLEARED FDA SPEC HOME USE LAPAROSCO 31340 [facility] DANAY TOD PY SURG 5 PHYSICIAN CHOLECYST S GROUP ECTOMY URINE 31754 [facility] 5 [facility] TEST INC INC VISUAL COLOR CMPRSN METHS BLOOD 76207 [facility] COUNT 5 [facility] COMPLETE INC INC AUTO&AUTO DIFRNTL WBC ECG 55440 [facility] ROUTINE 5 [facility] ECG INC INC W/LEAST 12 LDS TRCG ONLY W/O I&R ECG 79524 [facility] GOLDEN JR ROUTINE 5 [facility] W/LEAST P 12 LDS I&R ONLY COLLECTIO 12919 [facility] N VENOUS 5 [facility] BLOOD INC INC VENIPUNCT URE COMPREHEN 43325 [facility] U[facility] SIVE 5 [facility] METABOLIC INC INC PANEL HEPATOBIL 04937 [facility] SYST 5 MEDICAL ULISES IMAG INC IMAGING GB ASS W/PHARMA INTERVENJ INJECTION J2805 [facility] 5 [facility] SINCALIDE INC INC 5 [place] [address] [facility] THYROXINE 5 [facility] TOTAL INC INC HEMOGLOBI 78695 [facility] N 5 [facility] GLYCOSYLA INC INC RASHAD A1C GENERAL 42021 [facility] HEALTH 5 [facility] PANEL INC INC LIPID 69944 [facility] PANEL 5 [facility] INC INC CYSTO 79922 [facility] ALFRED W/SIMPLE 5 [place] MIGUEL REMOVAL ADULT & STONE & PED STENT CYSTO/URE 93801 [facility] ED[facility] TERO [address] [place] [address]/[facility] IPSY &INDWELL STENT INSRT X-RAY 30280 [facility] URINARY [address] [place] [address] EXAM WITH CONTRAST MATERIAL ANES 10670 [place] CHINEDU TRUR 5 ANESTHESI HERBER FRAGMNTJ A GROUP MANJ&/RMV PS L URETERAL CALCULUS STENT C2617 [facility] NON-COR [address] [facility] [address] WITHOUT DELIVERY SYSTEM GLUC BLD 41359 NAYACARLOS GREY GLUC MNTR 5 [facility] CLEARED FDA SPEC HOME USE URINE 09940 BOURBCARLOS GREY [address] [place] [address] VISUAL COLOR CMPRSN METHS DILATION 92357 [facility]ED NEPHROSTO 5 [place] MIGUEL MY/URETER ADULT & /URETHRA PED RS&I INTRO 91060 [place] URETERAL 5 [facility] T PRQ RS&I COMPREHEN 55563 [facility] SIVE 5 [facility] METABOLIC INC INC PANEL COLLECTIO 78403 [facility] U[facility] N VENOUS 5 [facility] [place] [address] [facility] URBIAN AMYLASE 5 [facility] [place] [address] [place] ALL ABDOMINAL 5 MEDICAL REAL IMAGING TIME ASS W/IMAGE LIMITED ECG 72324 [facility] GOLDEN JR ROUTINE 5 [facility] W/LEAST P 12 LDS I&R ONLY ECG 88626 [facility] ROUTINE 5 [facility] ECG INC INC W/LEAST 12 LDS TRCG ONLY W/O I&R CULTURE 06649 [facility] BACTERIAL 5 [facility] INC INC QU[place]TT[place] [address] [facility] LIPASE 5 [facility] INC INC BLOOD 93118 [facility] COUNT 5 [facility] COMPLETE INC INC AUTO&AUTO DIFRNTL WBC URNLS DIP 86699 [facility] 5 [facility] STICK/TAB INC [place] [address] [facility] ALFRED RETROPERI 5 [place]IG[place] TONEAL ADULT & REAL TIME PED W/IMAGE COMPLETE CYTP 53243 [facility], [facility] SLCTV 4 [facility] JOAQUIN CELL ENHANCEME NT INTERPJ XCPT C/V CYSTO 13547 [facility] ALFRED W/INSERT 4 [place]IG[place] URETERAL ADULT & STENT PED INTRO 14463 [place] URETERAL 4 [facility] T PRQ RS&I DILATION 29393 [facility] ALFRED NEPHROSTO 4 [place] MY/URETER ADULT & /URETHRA PED RS&I GLUC BLD 50458 [place] GLUC MNTR 4 [facility] CLEARED FDA SPEC HOME USE URINE 29138 [place] 4 [facility] VISUAL COLOR CMPRSN METHS GUIDE C1769 [facility] [place] WIRE [address] [facility] STENT C2617 GREY [facility] NON-COR 4 [facility] WITHOUT DELIVERY SYSTEM ANES 34951 [place] DE[place] RAY TRURL 4 ANESTHESI FRAGMNTJ A GROUP MANJ&/RMV PS L URETERAL CALCULUS CYSTO 32966 [place] ALFRED W/URETERO 4 [place] [facility] SCOPY ADULT & W/LITHOTR PED IPSY CYSTO/URE 21877 GREY ED[place]DS TERO 4 [facility] W/LITHOTR HOSPITAL HOSPITAL IPSY &INDWELL STENT INSRT ECG 48850 NAIF BROOKS BROOKS NAIF ROUTINE 4 MD ECG CONSULTIN W/LEAST G SRV 12 LDS I&R ONLY ECG 63582 [facility] ROUTINE 4 [facility] W/LEAST 12 LDS TRCG ONLY W/O I&R COMPREHEN 11773 GREY EDMONDS SIVE [address] [place] [address] PANEL BLOOD 45848 GREY EDMONDS COUNT [address] [place] [address] AUTO&AUTO DIFRNTL WBC URNLS DIP 84901 GREY PERSONON [address] [place] [address] [facility] HOSPITAL LET REAGENT AUTO MICROSCOP Y GLUC BLD 67491 [facility] GLUC MNTR 4 PHYSICIAN PHYSICIAN DEV S GROUP S GROUP CLEARED FDA SPEC HOME USE CYSTO 52463 [place] ALFRED W/SIMPLE 4 [place] [facility] REMOVAL ADULT & STONE & PED STENT CYSTO 63627 [place] ALFRED W/INSERT 4 [place] [facility] URETERAL ADULT & STENT PED GLUC BLD 79941 GRE[facility]DS GLUC MNTR 4 [facility] CLEARED FDA SPEC HOME USE ANES 78044 [facility] MANDUJANO DES LITHOTRP 4 ANESTHESI XTRCORP A GROUP SHOCK PS WAVE W/O WATER BATH LITHOTRIP 38639 GREY EDMONDS SY [address] [place] [address] [facility] SH[facility] WAVE COMPREHEN 98806 [facility] SIVE 4 N N [facility] PANEL HOSPITA HOSPITA URNLS DIP 47224 [facility] 4 N N STICK/TAB COMMUNITY COMMUNITY LET HOSPITA HOSPITA REAGENT AUTO MICROSCOP Y BLOOD 69295 [facility] COUNT 4 N N COMPLETE COMMUNITY COMMUNITY AUTO&AUTO HOSPITA HOSPITA DIFRNTL WBC CULTURE 40452 [facility] BACTERIAL 4 N N COMMUNITY COMMUNITY QUANTTATI HOSPITA HOSPITA VE COLONY COUNT URINE ECG 25523 [facility] ROUTINE 4 N N ECG COMMUNITY COMMUNITY W/LEAST HOSPITA HOSPITA 12 LDS TRCG ONLY W/O I&R RADEX 08993 CIARA URBINA ABDOMEN [address] [place] [address] [facility] ANTEROPOS TERIOR VIEW RINGERS [id number] [address] INFUSION UP TO 1000 CC RADEX [address] ANTEROPOS TERIOR VIEW CYSTO 34398 [facility] W/O [address] [place] [address] RMVL URETERAL STONE ANES 15658 ANESTHESI KAREEN PATEL 4 A [facility]&/RMV S PSC L URETERAL CALCULUS INJECTION [id number] [address] [place] HCL PER 1 MG INJECTION [id number] [address] KETOROLAC TROMETHAM INE PER 15 MG INJECTION J3010 [address] CITRATE 0.1 MG INJECTION [id number] LEVOFLOXA JAILENE 250 MG INJECTION J2001 [address] LIDOCAINE HCL INTRAVENO US INFUS 10 MG CULTURE [id number] QUANTTATI VE COLONY COUNT URINE GONADOTRO [address] CHORIONIC QUALITATI VE GLUCOSE [address] REAGENT STRIP INJECTION [id number] [address] ONDANSETR ON HCL PER 1 MG CYSTO 47304 KIM ROSADO JR W/INSERT 4 [facility] ST[facility] PSC ECG 97289 TC ANNIE PRETTY ROUTINE 4 PHYSICIAN ECG GROUP, W/LEAST INC. 12 LDS I&R ONLY THERAPEUT 54847 [facility] IC 4 [facility] INJECTION INC INC IV PUSH EACH NEW DRUG THER 18468 [facility] PROPH/DX 4 [facility] NJX IV INC INC PUSH SINGLE/1S T SBST/DRUG 3D 44201 [facility] U[facility] RENDERING 4 [facility] INC INC W/INTERP& POSTPROC DIFF WORK STATION INJECTION J2405 [facility] URBINA 4 [facility] ONDANSETR INC INC [place] HCL [place] 1 [place] [address] [facility] AMYLASE 4 [facility] INC INC COMPREHEN 11722 [facility] SIVE 4 [facility] METABOLIC INC INC PANEL BLOOD 27683 [facility] U[facility] COUNT 4 [facility] COMPLETE INC INC AUTO&AUTO DIFRNTL WBC URNLS DIP 71551 [facility] URBINA 4 [facility] STICK/TAB INC INC [place] [address] [facility] LIPASE 4 [facility] INC INC URINE 26835 [facility] URBINA 4 [facility] TEST INC [place] [address] [facility] U[facility]INA ABDOMEN & 4 [facility] PELVIS INC INC W/[place] [address] [facility] THYROXINE 4 [facility] TOTAL INC INC CYANOCOBA 67623 [facility] RENNY 4 [facility] VITAMIN INC INC B-12 SEDIMENTA 11361 [facility] TION RATE 4 [facility] RBC INC INC NON-AUTOM ATED HEMOGLOBI 68194 [facility] N 4 [facility] GLYCOSYLA INC [place] [address] [address] [facility] VITAMIN A 4 [facility] INC INC GENERAL 43908 [facility] HEALTH 4 [facility] PANEL INC INC LIPID 68861 [facility] PANEL 4 [facility] INC INC Encounters Encounter Start End Date Code Location Performer Type Date HOSPITAL [facility] - 7 7 [facility] OUTPATIEN INC T EMERGENCY 56536 [facility] 7 7 [facility] INC T VISIT MODERATE SEVERITY EMERGENCY 08421 ZAK HAMMER DEPT 7 7 PHYSICIAN VISIT S, [facility] HIGH SEVERITY& THREAT [facility] - 7 7 [facility] INC [facility]OSPITAL [facility] - 7 7 [facility] OUTPATIEN INC T OFFICE 27652 [facility] OUTPATIEN 6 6 FIRST JIGNESH T VISIT PODIATRY 15 [facility] MINUTES OFFICE 57001 [facility] OUTPATIEN 6 6 FIRST JIGNESH T NEW 45 PODIATRY MINUTES [facility]OSP[facility] - 6 6 [facility] OUTPATIEN INC T OFFICE 24394 [facility] DELL OUTPATIEN 6 6 PHYSICIAN SHILA T VISIT S GROUP 25 MINUTES OFFICE 42931 [facility] OLGUIN OUTPATIEN 6 6 PHYSICIAN T VISIT S GROUP 15 MINUTES HOSPITAL [facility] - 6 6 [facility] OUTPATIEN INC T OFFICE 48562 [facility] DELL OUTPATIEN 6 6 PHYSICIAN SHILA T VISIT S GROUP 10 MINUTES HOSPITAL [facility] - 6 6 [facility] OUTPATIEN INC T OFFICE 14906 [facility] ISSA OUTPATIEN 5 5 [facility] VISIT HOSPITAL 15 MINUTES HOSPITAL [facility] - 5 5 [facility] OUTPATIEN INC [facility]OSPITAL [facility] - 5 5 [facility] OUTPATI[facility] INC T OFFICE 62303 [facility] DANAY TOCorine CONSULTAT 5 5 PHYSICIAN ION S GROUP NEW/ESTAB PATIENT 40 MIN HOSPITAL [facility] - 5 5 [facility] OUTPATIEN [facility] T OFFICE 16829 [facility] 5 PHYSICIAN ELLEN T NEW 45 S GROUP MINUTES [facility]OSPITAL [facility] 5 5 [facility] [place] [facility] 5 5 [facility] - [address] [facility] T OFFICE 54532 [facility] [place] [facility] VIS[facility] ADULT & 25 PED MINUTES OFFICE 81318 [facility] OUT[facility] 5 5 PHYSICIAN SHILA T VISIT S GROUP 15 MINUTES OFFICE 21864 [facility] 5 5 [place] [facility] VISIT ADULT & 25 PED MINUTES OFFICE 91531 [facility] OUT[facility] 5 5 PHYSICIAN SHILA T VISIT S GROUP 15 MINUTES [facility] [place] - 4 4 [facility] [place] - 4 4 [facility] T OFFICE 59910 [facility] OUTPATI[facility] 4 4 [place] [facility] T VISIT ADULT & 15 PED MINUTES OFFICE 37714 [facility] 4 4 PHYSICIAN SHILA T VISIT S GROUP 15 MINUTES [facility] [place] [facility] [place] [facility] 4 4 [facility] OFFICE 04028 [facility] 4 4 [place] [facility]ON ADULT & NEW/ESTAB PED PATIENT 40 MIN OFFICE 87465 [facility] ROSADO OUTPATIEN 4 4 [facility] 15 P MINUTES [facility] - 4 4 [facility] [place] - 4 4 [facility] T OFFICE 64331 [facility] [address] MINUTES [facility]ITAL [facility] 78683 [facility] 4 4 [facility] T VISIT MODERATE [facility]VERITY EMERGENCY 06653 [facility] 4 4 [facility] EMERGENC[facility] T [facility]ISIT PHYSI HIGH/URGE NT SEVERITY HOSPITAL [facility]
--- OUTSIDE RECORDS SUMMARY | 2016-12-28 08:34 | External Medical Summary Rpt | CCD ---
Author Author , ASUNCION ROLAND Address Unknown Phone [email or web address] Care Team Providers Care Outside Machinist Name Role Phone NOE BRENDAN, NOE Unavailable Unavailable BRENDAN RICHARDS, RICHARDS Unavailable Unavailable RICHARDS ALL, RICHARDS ALL Unavailable Unavailable [facility] Unavailable Unavailable HOSPITAL, [facility], Unavailable Unavailable [facility] Unavailable Unavailable ADULT & PED, [facility] ZOILA RADHA, ZOILA RADHA [...] DELL Unavailable Unavailable SHIL[facility] Unavailable Unavailable HOSPITA, [facility] Unavailable Unavailable INC, [facility] Unavailable Unavailable HOSPITAL, [facility] Unavailable Unavailable HOSPITAL P, [facility] P [facility], Unavailable Unavailable [facility] Unavailable GROUP PS, [facility] Unavailable Unavailable [facility], [facility] OLGUIN, OLGUIN Unavailable Unavailable OLGUIN ELLEN, OLGUIN Unavailable Unavailable ELLEN CHANTEL JR DWI, CHANTEL Unavailable Unavailable JR DWI ANNIE PRETTY, ANNIE PRETTY Unavailable Unavailable MCNEAL JOAQUIN, MCNEAL Unavailable Unavailable JOAQUIN ADEOLA GRE, Unavailable Unavailable ADEOLA GRE ADEOLA GRE, Unavailable Unavailable ADEOLA CRAVEN, CHINEDU Unavailable Unavailable [facility], [facility] Unavailable Unavailable [facility], [facility] [facility] [facility], [facility] Unavailable Unavailable LABS, LLC [facility], Unavailable Unavailable PLLC, [facility] DANAY TOD, DANAY TOD Unavailable Unavailable SADEK, SADEK Unavailable Unavailable DELBERT DES, DELBERT DES Unavailable Unavailable SOKAN BAB, SOKAN BAB Unavailable Unavailable [facility], Unavailable Unavailable [facility], Unavailable Unavailable [facility] BRETT COULTER, BRETT Unavailable Unavailable YFN MATHUR MARIO, KAREEN Unavailable Unavailable MARIO Purpose Continuity of Care Document - 07-08-2013 through 2016 Problems Code Diagnosis DOS Provider Status [id number] UNSPECIFIED 07-22-2016 [place] [facility] CYST LEFT IMAGING ASS SIDE E1165 TYPE 2 07-17-2016 [facility] MELLITUS INC WITH HYPERGLYCEM IA E118 TYPE 2 07-17-2016 [facility] DIABETES PHYSICIANS, MELLITUS [facility] W/UNS COMPLICATIO NS [id number] UNSPECIFIED 07-17-2016 [facility] CYST INC UNSPECIFIED SIDE N839 NONINFLAMM 07-17-2016 [place] D/O OVARY MEDICAL FALLOP TUBE IMAGING ASS & BROAD LIG UNS R109 UNSPECIFIED 07-17-2016 [place] ABDOMINAL [facility]ICAL PAIN IMAGING ASS 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, OF INSULIN [facility] G23550 PERSONAL 07-17-2016 [place] HISTORY OF MEDICAL URINARY IMAGING ASS CALCULI N390 URINARY 07-09-2016 [facility] INFECTION INC SITE NOT SPECIFIED [id number] PAIN IN 02-05-2016 FEET FIRST LEFT ANKLE PODIATRY [facility] M7732 CALCANEAL 02-05-2016 [facility] SPUR LEFT PODIATRY FOOT [facility] M7742 METATARSALG 02-05-2016 FEET FIRST IA LEFT PODIATRY FOOT [facility] X84306 PAIN IN 02-05-2016 [facility] FIRST LEFT FOOT PODIATRY [facility] M7989 OTHER 01-17-[address] [facility] DISORDERS G5762 LESION OF 12-04-2015 FEET FIRST PLANTAR PODIATRY NERVE LEFT [facility] LOWER LIMB E119 TYPE 2 09-18-2015 [facility] DIABETES PHYSICIANS MELLITUS GROUP WITHOUT COMPLICATIO NS 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-18-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 GROUP UNSPECIFIED UPPER LIMB H6520 CHRONIC 06-15-2015 [facility] SEROUS PHYSICIANS OTITIS GROUP MEDIA UNSPECIFIED EAR J309 ALLERGIC 06-15-2015 [facility] RHINITIS PHYSICIANS UNSPECIFIED GROUP 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 Z6835 BODY MASS 06-15-2015 [facility] INDEX BMI PHYSICIANS 35.0-35.9 GROUP ADULT Z6836 BODY MASS 06-15-2015 [facility] INDEX BMI PHYSICIANS 36.0-36.9 GROUP ADULT Z885 ALLERGY 06-15-2015 [facility] STATUS TO PHYSICIANS NARCOTIC GROUP AGENT STATUS Z889 ALLERGY 06-15-2015 [facility] STATUS UNS PHYSICIANS RX MEDS & GROUP BIOLOG SUBSTANC STS R197 DIARRHEA 06-02-2015 [facility] UNSPECIFIED [facility] INC H6503 ACUTE 05-18-2015 [facility] SEROUS PHYSICIANS OTITIS GROUP MEDIA BILATERAL H6523 CHRONIC 05-18-2015 [place] SEROUS [facility] OTITIS INC MEDIA BILATERAL H6693 OTITIS 05-18-2015 COMMUNITY MEDIA ANESTH OF UNSPECIFIED THE BLUE BILATERAL J320 CHRONIC 04-06-2015 [facility] MAXILLARY PHYSICIANS SINUSITIS GROUP Z6837 BODY MASS 04-06-2015 [facility] INDEX BMI PHYSICIANS 37.0-37.9 GROUP ADULT H6690 OTITIS 02-28-2015 [facility] UNSPECIFIED EAR J0100 ACUTE 02-28-2015 [facility] SINUSITIS HOSPITAL UNSPECIFIED R05 COUGH 02-28-2015 [facility] Z0100 ENCOUNTER 02-14-2015 [facility] EXAM EYES & GRE VISION W/O ABNORMAL FIND K811 CHRONIC 02-10-2015 [facility], CHOLECYSTIT LLC IS K819 CHOLECYSTIT 02-10-2015 COMMUNITY IS ANESTH OF UNSPECIFIED THE BLUE K824 CHOLESTEROL 02-10-2015 [facility], OSIS OF LLC GALLBLADDER K828 OTHER 02-10-2015 [facility] SPECIFIED PHYSICIANS DISEASES OF GROUP GALLBLADDER R1011 RIGHT UPPER 12-27-2014 [place] QU[facility]ANT [facility] PAIN IMAGING ASS R110 NAUSEA 12-27-2014 [facility] H6592 UNSPECIFIED 12-26-2014 [facility] PHYSICIANS NONSUPPURAT GROUP GEOFF OTITIS MEDIA LT EAR 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 [place] [place] UNSPECIFIED STATUS 68574 ESOPHAGEAL 09-21-2014 [facility] REFLUX [facility] 44434 ABDOMINAL 09-21-2014 [facility] PA[facility], COMM[facility]ITY UNSPECIFIED HOSPITAL SITE V148 PERSONAL 09-21-2014 [facility] ALLERGY OT HOSPITAL SPEC MEDICINAL AGTS V5869 LONG-TERM 09-21-2014 [facility] (CURRENT) [facility] USE OF HOSPITAL OTHER MEDICATIONS 68532 OVERWEIGHT 09-16-2014 [facility] P 3559 MONONEURITI 09-16-2014 [facility] S OF [facility] UNSPECIFIED INC SITE 4240 MITRAL 09-16-2014 [facility] 00026 CHEST PAIN 09-16-2014 [facility] UNSPECIFIED [facility] INC 98872 NAUSEA WITH 09-16-2014 [place] [facility]OM[facility] 7881 DYSURIA 09-16-2014 [facility] INC 78955 ABDOMINAL 09-16-2014 [place] PAIN RIGHT MEDICAL UPPER IMAGING ASS QUADRANT V700 ROUTINE 09-16-2014 [facility] MEDICAL INC EXAM@HEALTH CARE FACL 1891 MALIGNANT 09-08-2014 [facility] NEOPLASM OF [place] RENAL ADULT & PED PELVIS 3829 UNSPECIFIED 07-20-2014 [facility] OTITIS PHYSICIANS MEDIA GROUP 4739 UNSPECIFIED 07-20-2014 [facility] SINUSITIS PHYSICIANS GROUP 13381 UNSPECIFIED 03-24-2014 [facility] OTALGIA PHYSICIANS GROUP 5932 ACQUIRED 03-24-2014 [facility] CYST OF [place] [facility]ED 7245 UNSPECIFIED 03-24-2014 [facility] BACKACHE [place] ADULT [facility]ED 7295 PAIN IN 03-24-2014 [facility] SOFT PHYSICIANS TISSUES OF GROUP LIMB 06903 NEOPLASM OF 01-10-2014 [facility] [place] [address] OBESITY, 01-10-2014 [facility]PECIFIED [facility]PITAL HOSPITAL 4019 UNSPECIFIED 01-10-2014 [facility] HYPERTENSIO [facility] N 591 HYDRONEPHRO 01-10-2014 [facility] SIS [place] ADULT & PED 5921 CALCULUS OF 01-10-2014 [place] URETER ANESTHESIA GROUP PS V8534 BODY MASS 01-10-2014 [facility]DEX [facility] 34.0-34.9 HOSPITAL ADULT 7880 RENAL COLIC 01-06-2014 [facility] ADULT [facility] PED V7283 OTHER 10-18-2013 [place] SPECIFIED COMMUNITY PRE-OPERATI HOSPITA VE EXAMINATION 86324 MORBID 10-08-2013 [facility]PITAL 490 BRONCHITIS 10-08-2013 [facility] SPECIFIED ACUTE OR CHRONIC 32704 EXTRINSIC 10-08-2013 [facility] ASTHMA, [facility] UNSPECIFIED 58912 UNSPECIFIED 10-07-2013 [facility] 100[facility] URINARY 10-05-2013 BEINE[facility] BRENDAN OBSTRUCTION UNSPECIFIED 88554 ABD/PELVIC 10-05-2013 BEINE[facility] BRENDAN SWELLING MASS/LUMP OT SPEC SITE 59748 OTHER 08-24-2013 [facility] FATIGUE INC V720 [...] LO 00 08 09 60 30 00 PA Ac RA 37 -0 -0 .0 00 L- ti ZE 82 1- 1- 00 04 MA ve PA 32 20 20 53 RT M 10 17 17 02 0. 1 15 PH 5 AR MG MA CY TA BL #5 ET 91 NA 65 07 08 20 10 00 PA Ac AL 16 -1 -1 .0 00 L- ti [...] AT 00 07 08 30 30 00 PA Ac EN 09 -1 -0 .0 00 [...] AT 00 05 06 30 30 00 PA Ac EN 09 -1 -0 .0 00 L- ti OL 30 6- 9- 00 07 MA ve OL 75 20 20 48 RT 21 17 17 82 50 0 16 PH AR MG MA CY TA BL #5 ET 91 AZ 59 05 06 6. 5 00 PA Ac IT 76 -0 -0 00 00 L- ti HR 23 3- 2- 0 07 MA ve OM 06 20 20 48 RT YC 00 17 17 57 IN 1 45 PH AR 25 MA 0 CY MG #5 TA 91 BL ET ME 68 05 06 60 30 00 PA Ac TF 64 -0 -0 .0 00 L- ti OR 50 3- 2- 00 07 MA ve ND 54 20 20 48 RT N 55 17 17 57 HC 9 38 PH L AR 1, MA 00 CY 0 MG #5 91 TA BL ET LO 00 05 06 60 30 00 PA Ac RA 37 -0 -0 .0 00 L- ti ZE 82 3- 2- 00 04 MA ve PA 32 20 20 53 RT M 10 17 17 02 0. 1 15 PH 5 AR MG MA CY TA BL #5 ET 91 AL 59 05 06 10 5 00 PA Ac ED 74 -0 -0 .0 00 L- ti NI 60 3- 2- 00 07 MA ve SO 17 20 20 48 RT NE 30 17 17 57 6 37 PH 10 AR MA MG CY TA #5 BL 91 ET IN 31 05 06 20 5 00 PA Ac DO 72 -1 -0 .0 00 L- ti ME 20 1- 2- 00 07 MA ve TH 54 20 20 48 RT AC 20 17 17 74 IN 1 68 PH AR 25 MA CY MG #5 CA 91 PS UL E BU 60 05 06 60 30 00 PA Ac AL 50 -0 -0 .0 00 L- ti OP 50 3- 2- 00 07 MA ve IO 15 20 20 48 RT N 80 17 17 57 HC 1 44 PH L AR 75 MA CY MG #5 TA 91 BL ET AT 00 04 05 30 30 00 PA Ac EN 78 -1 -0 .0 00 L- ti OL 11 4- 5- 00 07 MA ve OL 50 20 20 48 RT 61 17 17 22 50 0 68 PH AR MG MA CY TA BL #5 ET 91 AT 00 03 04 30 30 00 PA Ac EN 78 -1 -0 .0 00 L- ti OL 11 5- 7- 00 07 MA ve OL 50 20 20 47 RT 61 17 17 66 50 0 31 PH AR MG MA CY TA BL #5 ET 91 AT 00 02 03 30 30 00 PA Ac EN 78 -1 -1 .0 00 L- ti OL 11 0- 0- 00 07 MA ve OL 50 20 20 47 RT 61 17 17 00 50 0 64 PH AR MG MA CY TA BL #5 ET 91 AT 00 01 02 30 30 00 PA Ac EN 78 -1 -1 .0 00 L- ti OL 11 3- 0- 00 07 MA ve OL 50 20 20 46 RT 61 17 17 44 50 0 00 PH AR MG MA CY TA BL #5 ET 91 AT 00 12 01 30 30 00 PA Ac EN 78 -1 -0 .0 00 L- ti OL 11 2- 9- 00 07 MA ve OL 50 20 20 45 RT 61 16 17 80 50 0 08 PH AR MG MA CY TA BL #5 ET 91 Procedures [place] [address] [facility] TRANSVAGI 7 [facility] NAL INC INC US PELVIC 75328 [place] JEAN 7 MEDICAL NONOBSTET IMAGING JOAQUIN ASS REAL-TIME IMAGE COMPLETE THERAPEUT 97550 [facility] IC 7 [facility] PROPHYLAC INC INC TIC/DX INJECTION SUBQ/IM THER 97429 [facility] PROPH/DX 7 [facility] NJX IV INC INC PUSH SINGLE/1S T SBST/DRUG COMPREHEN 96676 [facility] SIVE 7 [facility] [address] [place] RICHARDS ABDOMEN & 7 MEDICAL PELVIS IMAGING W/O ASS CONTRAST MATERIAL BLOOD 28800 [facility] COUNT 7 [facility] COMPLETE INC INC AUTO&AUTO DIFRNTL WBC CULTURE 80762 [facility] BACTERIAL 7 [facility] INC INC QUANTTATI VE COLONY COUNT URINE WALKING L4360 FEET FARRER BOOT 6 [facility] PNEUMATC PODIATRY &/ VACUUM PLLC PREFAB CUSTM FIT ADD LOW L2840 FEET FARRER EXTREM 6 [facility] ORTHOTIC PODIATRY TIB PLLC LENGTH SOCK FX/= EA MRI LOWER 81799 LUIS FERNANDO GOULD EXTREM [address] OTH/THN [facility] JT W/O CONTR MATRL RADEX 72991 FEET FARRER FOOT 6 [facility] COMPLETE PODIATRY MINIMUM 3 PLLC VIEWS RADEX 15480 CIARACARLOS URB[facility] FOOT 6 [facility] COMPLETE INC INC MINIMUM 3 VIEWS RADIOLOGI 72405 [place] RICHARDS ALL C 6 MEDICAL EXAMINATI IMAGING ON FOOT 2 ASS VIEWS CUL BACT 39928 [facility] STOOL 6 [facility] AEROBIC INC INC ISOL SALMONELL A&SHIGELL BLOOD 30764 [facility] OCCULT 6 [facility] PEROXIDAS INC INC E ACTV QUAL FECES 1-3 [place] [address] [facility] HPYLORI 6 [facility] STOOL INC INC IADNA-DNA 79975 [facility] /RNA GI 6 [facility] PTHGN INC INC MULTIPLEX [place]BE TQ 12-25 [place] [address] [facility] INFUSION 6 [facility] THERAPY/P INC INC ROPHYLAXI S /DX 1ST TO 1 HR BASIC 70088 [facility] METABOLIC 6 [facility] [place] T[place] [address] [facility] INFUSION 6 [facility] THERAPY INC INC PROPHYLAX IS/DX EA HOUR COLLECTIO 69217 [facility] N VENOUS 6 [facility] BLOOD INC INC VENIPUNCT URE THERAPEUT 50626 [facility] IC 6 [facility] INJECTION INC INC IV PUSH EACH NEW DRUG GLUC BLD 10136 [facility] GLUC MNTR 6 [facility] DEV INC INC CLEARED FDA SPEC HOME USE URINE 67501 [facility] URBINA 6 [facility] TEST INC INC VISUAL COLOR CMPRSN METHS ANES 78814 COMMUNITY BRETT XTRNL MID 6 ANESTH YFN & INNER OF THE EAR W/BX BLUE TYMPANOTO MY TYMPANOST 82849 [facility] OLGUIN PATRICK 6 PHYSICIAN ELLEN GENERAL S GROUP ANESTHESI A BLOOD 69115 [facility] COUNT 6 [facility] COMPLETE INC INC AUTO&AUTO DIFRNTL WBC IAADIADOO 93485 [facility] ISSA 5 [facility] DETERMINA 31941 [facility] 5 GRE GRE REFRACTIV E STATE OPHTH 72505 [facility] 5 GRE GRE XM&EVAL COMPRHNSV ESTAB PT 1/> INJECTION J2405 [facility] URBINA 5 [facility] ONDANSETR INC INC ON HCL PER 1 MG COLLECTIO 44952 [facility] N VENOUS 5 [facility] [place] [address] [facility] INFUSION 5 [facility] THERAPY/P INC INC ROPHYLAXI S /DX 1ST TO 1 HR THERAPEUT 60781 [facility] U[facility] IC 5 [facility] INJECTION INC INC IV PUSH EACH NEW DRUG LEVEL III 55655 [facility] SURG 5 [facility] GROSS&[place] [address] [facility] INFUSION 5 [facility] THERAPY INC INC PROPHYLAX IS/DX EA HOUR BLOOD 76449 [facility] COUNT 5 [facility] COMPLETE INC INC AUTO&AUTO DIFRNTL WBC ANES 87467 [facility] INTRAPERI 5 ANESTH SHE TONEAL OF THE UPPER BLUE ABDOMEN W/LAPS NOS GLUC BLD 79779 [facility] GLUC MNTR 5 [facility] DEV INC INC CLEARED FDA SPEC HOME USE LAPAROSCO 03940 [facility] DANAY TOD PY SURG 5 PHYSICIAN CHOLECYST S GROUP ECTOMY URINE 98133 [facility]INA 5 [facility] TEST INC INC VISUAL COLOR CMPRSN METHS BLOOD 40657 [facility] COUNT 5 [facility] COMPLETE INC INC AUTO&AUTO DIFRNTL WBC ECG 28714 [facility] ROUTINE 5 [facility] ECG INC INC W/LEAST 12 LDS TRCG ONLY W/O I&R ECG 90668 [facility] GOLDEN JR ROUTINE 5 [facility] W/LEAST P 12 LDS I&R ONLY COLLECTIO 66094 [facility] URB[facility] N VENOUS 5 [facility] BLOOD INC INC VENIPUNCT URE COMPREHEN 38277 [facility] URBIAN SIVE 5 [facility] METABOLIC INC INC PANEL HEPATOBIL 12890 [facility] JEAN SYST 5 MEDICAL ULISES IMAG INC IMAGING GB ASS W/PHARMA INTERVENJ INJECTION J2805 [facility]INA 5 [facility] SINCALIDE INC INC 5 [place] [address] [facility] U[facility] THYROXINE 5 [facility] TOTAL INC INC HEMOGLOBI 65395 [facility] U[facility] N 5 [facility] GLYCOSYLA INC INC RASHAD A1C GENERAL 81993 [facility] U[facility]INA HEALTH 5 [facility] PANEL INC INC LIPID 36492 [facility] PANEL 5 [facility] INC INC CYSTO 03206 [facility] W/SIMPLE 5 [place] MIG[facility] REMOVAL ADULT & STONE & PED STENT CYSTO/URE 65729 GREY EDMONDS TERO [address] [place] [address]/[facility] IPSY &INDWELL STENT INSRT X-RAY 78944 [facility] EDMON[facility] URINARY [address] [place] [address] EXAM WITH CONTRAST MATERIAL ANES 82315 [place] CHINEDU TRUR 5 ANESTHESI HERBER FRAGMNTJ A GROUP MANJ&/RMV PS L URETERAL CALCULUS STENT C2617 [facility] NON-COR 5 [facility] WITHOUT DELIVERY SYSTEM GLUC BLD 94640 NAYACARLOS GREY GLUC MNTR 5 [facility] CLEARED FDA SPEC HOME USE URINE 49037 BOURBCARLOS GREY [address] [place] [address] VISUAL COLOR CMPRSN METHS DILATION 67363 [facility] NEPHROSTO 5 [place] [facility] MY/URETER ADULT & /URETHRA PED RS&I INTRO 90370 [facility] [place] URETERAL 5 [facility] T PRQ RS&I COMPREHEN 15116 [facility] SIVE 5 [facility] METABOLIC INC INC PANEL COLLECTIO 40109 [facility] N VENOUS 5 [facility] [place] [address] [facility] U[facility] AMYLASE 5 [facility] [place] [address] [place] [facility] ALL ABDOMINAL 5 MEDICAL REAL IMAGING TIME ASS W/IMAGE LIMITED ECG 40739 [facility] GOLDEN JR ROUTINE 5 [facility] W/LEAST P 12 LDS I&R ONLY ECG 50248 [facility] U[facility]INA ROUTINE 5 [facility] ECG INC INC W/LEAST 12 LDS TRCG ONLY W/O I&R CULTURE 16860 [facility] BACTERIAL 5 [facility] INC INC QUANTTAT[place] [address] [facility] U[facility] LIPASE 5 [facility] INC INC BLOOD 06971 [facility] COUNT 5 [facility] COMPLETE INC INC AUTO&AUTO DIFRNTL WBC URNLS DIP 40840 [facility]RBINA 5 [facility] STICK/TAB INC [place] [address] [facility] RETROPERI 5 [place] [facility] TONEAL ADULT & REAL TIME PED W/IMAGE COMPLETE CYTP 41488 [facility], [facility] SLCTV 4 [facility] JOAQUIN CELL ENHANCEME NT INTERPJ XCPT C/V CYSTO 38329 [facility]ED W/INSERT 4 [place] [facility] URETERAL ADULT & STENT PED INTRO 62324 [place] URETERAL 4 [facility] T PRQ RS&I DILATION 09783 [facility]ED NEPHROSTO 4 [place] MY/URETER ADULT & /URETHRA PED RS&I GLUC BLD 97666 [facility] [facility] GLUC MNTR 4 [facility] CLEARED FDA SPEC HOME USE URINE 90583 [facility] [facility] 4 [facility] VISUAL COLOR CMPRSN METHS GUIDE C1769 GRE[facility]DS WIRE 4 [facility] STENT C2617 GRE[facility] NON-COR 4 [facility] WITHOUT DELIVERY SYSTEM ANES 84572 [place] DEPA RAY TRURL 4 ANESTHESI FRAGMNTJ A GROUP MANJ&/RMV PS L URETERAL CALCULUS CYSTO 45687 [facility] W/URETERO 4 [place] [facility] SCOPY ADULT & W/LITHOTR PED IPSY CYSTO/URE 09595 GRE[facility] EDMONDS TERO 4 [facility] W/LITHOTR HOSPITAL HOSPITAL IPSY &INDWELL STENT INSRT ECG 52757 NAIF BROOKS BROOKS NAIF ROUTINE 4 MD ECG CONSULTIN W/LEAST G SRV 12 LDS I&R ONLY ECG 58343 GRE[facility] ED[facility]DS ROUTINE 4 [facility] W/LEAST 12 LDS TRCG ONLY W/O I&R COMPREHEN 12753 GREY EDMONDS SIVE [address] [place] [address] PANEL BLOOD 40348 GREY EDMONDS COUNT [address] [place] [address] AUTO&AUTO DIFRNTL WBC URNLS DIP 94506 GREY PERSONON [address] [place] [address] [facility] HOSPITAL LET REAGENT AUTO MICROSCOP Y GLUC BLD 99090 [facility] GLUC MNTR 4 PHYSICIAN PHYSICIAN DEV S GROUP S GROUP CLEARED FDA SPEC HOME USE CYSTO 67919 [facility]ED W/SIMPLE 4 [place] [facility] REMOVAL [facility]ULT [facility] STONE & PED STENT CYSTO 72916 [facility] ALFRED W/INSERT 4 [place] [facility] URETERAL ADULT & STENT PED GLUC BLD 69850 GREY EDMONDS GLUC MNTR 4 [facility] CLEARED FDA SPEC HOME USE ANES 85586 [facility] MANDUJANO DES LITHOTRP 4 ANESTHESI XTRCORP A GROUP SHOCK PS WAVE W/O WATER BATH LITHOTRIP 11111 GREY EDMONDS SY [address] [place] [address] [facility] WAVE COMPREHEN 90889 [facility] SIVE 4 N N [facility] PANEL HOSPITA HOSPITA URNLS DIP 46680 [facility] 4 N N STICK/TAB COMMUNITY COMMUNITY LET HOSPITA HOSPITA REAGENT AUTO MICROSCOP Y BLOOD 44642 [facility] COUNT 4 N N COMPLETE COMMUNITY COMMUNITY AUTO&AUTO HOSPITA HOSPITA DIFRNTL WBC CULTURE 51334 [facility] BACTERIAL 4 N N COMMUNITY COMMUNITY QUANTTATI HOSPITA HOSPITA VE COLONY COUNT URINE ECG 98373 [facility] ROUTINE 4 N N ECG COMMUNITY COMMUNITY W/LEAST HOSPITA HOSPITA 12 LDS TRCG ONLY W/O I&R RADEX 98559 CIARA URBINA ABDOMEN [address] [place] [address] [facility] INC ANTEROPOS TERIOR VIEW RINGERS J7120 [address] INFUSION UP TO 1000 CC RADEX [address] ANTEROPOS TERIOR VIEW CYSTO 36281 [facility] W/O [address] [place] [address] RMVL URETERAL STONE ANES 19324 ANESTHESI KAREEN PATEL 4 A MARIO FRAGMNTJ [facility] [place]&/RMV S PSC L URETERAL CALCULUS INJECTION J[address] [place] HCL PER 1 MG INJECTION J1885 [address] KETOROLAC TROMETHAM INE PER 15 MG INJECTION J3010 [address] CITRATE 0.1 MG INJECTION J1956 [address] LEVOFLOXA JAILENE 250 MG INJECTION J2001 [address] LIDOCAINE HCL INTRAVENO US INFUS 10 MG CULTURE [address] QUANTTATI VE COLONY COUNT URINE GONADOTRO [address] CHORIONIC QUALITATI VE GLUCOSE [address] REAGENT STRIP INJECTION J2405 [address] ONDANSETR ON HCL PER 1 MG CYSTO 68175 KIM ROSADO JR W/INSERT 4 [facility] ST[facility] PSC ECG 33396 TC ANNIE PRETTY ROUTINE 4 PHYSICIAN ECG GROUP, W/LEAST INC. 12 LDS I&R ONLY THERAPEUT 38200 CI[facility] URBINA IC 4 [facility] INJECTION INC INC IV PUSH EACH NEW DRUG THER 37764 CIARA URBINA PROPH/DX 4 [facility] NJX IV INC INC PUSH SINGLE/1S T SBST/DRUG 3D 15424 CIARA URBINA RENDERING 4 [facility] INC INC W/INTERP& POSTPROC DIFF WORK STATION INJECTION J2405 CIARA URBINA 4 [facility] ONDANSETR INC INC ON HCL [place] [address] [place] [address] CIARA URBINA AMYLASE 4 [facility] INC INC COMPREHEN 56114 [facility] URB[facility] SIVE 4 [facility] METABOLIC INC INC PANEL BLOOD [id number] [facility] COUNT 4 [facility] COMPLETE INC INC AUTO&AUTO DIFRNTL WBC URNLS DIP 91258 [facility] U[facility]INA 4 [facility] STICK/TAB INC INC [place] [address] [facility] U[facility]INA LIPASE 4 [facility] INC INC URINE [id number] [facility]INA 4 [facility] TEST INC [place] [address] [facility] URBINA ABDOMEN & 4 [facility] PELVIS INC INC W/[place] [address] [facility] THYROXINE 4 [facility] TOTAL INC INC CYANOCOBA 84149 [facility] RENNY 4 [facility] VITAMIN INC INC B-12 SEDIMENTA [id number] [facility] TION RATE 4 [facility] RBC INC INC NON-AUTOM ATED HEMOGLOBI [id number] [facility] N 4 [facility] GLYCOSYLA [place] [address] [facility]ITAMIN A 4 [facility] INC INC GENERAL [id number] [facility] 4 [facility] PANEL INC INC LIPID 41376 [facility] PANEL 4 [facility] INC INC Encounters Encounter Start End Date Code Location Performer Type Date HOSPITAL [facility] - 7 7 [facility] OUTPATI[facility] INC T EMERGENCY 30569 [facility] 7 7 [facility] INC T VISIT MODERATE SEVERITY EMERGENCY 68413 ZAK HAMMER DEPT 7 7 PHYSICIAN VISIT S, [facility] HIGH SEVERITY& [facility] - 7 7 [facility] - 7 7 [facility] INC T OFFICE 39827 [facility] OUTPATIEN 6 6 FIRST JIGNESH T VISIT PODIATRY 15 [facility] MINUTES OFFICE 37783 [facility] OUTPATIEN 6 6 FIRST JIGNESH T NEW 45 PODIATRY MINUTES [facility] - 6 6 [facility]PATIEN INC T OFFICE 79507 [facility] DELL OUTPATIEN 6 6 PHYSICIAN SHILA T VISIT S GROUP 25 MINUTES OFFICE 01205 [facility] OLGUIN OUTPATIEN 6 6 PHYSICIAN T VISIT S GROUP 15 MINUTES HOSPITAL [facility] - 6 6 [facility]PATIEN INC T OFFICE 93542 [facility] DELL OUTPATIEN 6 6 PHYSICIAN SHILA T VISIT S GROUP 10 MINUTES HOSPITAL [facility] - 6 6 [facility] OUTPATIEN INC T OFFICE 25242 [facility] ISSA OUTPATIEN 5 5 [facility] VISIT [facility] 15 MINUTES [facility]OSPITAL [facility] - 5 5 [facility] INC [facility] - 5 5 [facility] INC T OFFICE 87438 [facility] DANAY TOCorine CONSULTAT 5 5 PHYSICIAN ION S GROUP NEW/ESTAB PATIENT 40 MIN HOSPITAL [facility] - 5 5 [facility] T OFFICE 06245 [facility] OUTPATIEN 5 5 PHYSICIAN ELLEN T NEW 45 S GROUP MINUTES HOSPITAL [facility] 5 5 [facility] [place] 5 [facility] CIARA - 5 5 [facility] T OFFICE 40477 [facility] 5 5 [place] [facility] VIS[facility] ADULT & 25 PED MINUTES OFFICE 64970 [facility] OUTPATIEN 5 5 PHYSICIAN SHILA T VISIT S GROUP 15 MINUTES OFFICE 01283 [facility] 5 5 [place] [facility] VISIT ADULT & 25 PED MINUTES OFFICE 96983 [facility] OUTPATIEN 5 5 PHYSICIAN SHILA T VISIT S GROUP 15 MINUTES [facility] [place] - 4 4 [facility] [place] - 4 4 [facility] T OFFICE 65392 [facility] 4 4 [place] [facility] T VISIT ADULT & 15 PED MINUTES OFFICE 12396 [facility] OUTPATIEN 4 4 PHYSICIAN SHILA T VISIT S GROUP 15 MINUTES [facility] [place] - 4 4 [facility] [place] 4 [facility] OFF[facility] 47030 [facility] 4 4 [place] [facility] ION ADULT & NEW/ESTAB PED PATIENT 40 MIN OFFICE 09135 [facility]ADO OUTPATIEN 4 4 [facility] VISIT HOSP[facility] 15 P MINUTES HOSPITAL [facility] - 4 4 [facility] [address] [facility] OUTPATI[facility] T OFFICE 61700 [facility] [address] MINUTES HOSPITAL [facility] - 4 4 [facility] 77511 [facility] 4 4 [facility] T VISIT MODERATE SEVERITY EMERGENCY 11969 [facility] 4 4 [facility] EMERGENCY T VISIT PHYSI HIGH/URGE NT SEVERITY HOSPITAL [facility] - 4 4 [facility]
--- OUTSIDE RECORDS SUMMARY | 2016-12-28 08:34 | External Medical Summary Rpt ---
Author Author [employer], [employer] Organization [employer] Address Unknown Phone Unavailable
--- OUTSIDE RECORDS SUMMARY | 2016-12-28 08:34 | External Medical Summary Rpt | CCD ---
Author Author , [employer] ROLAND Address Unknown Phone [email or web address] Immunization Name Date Rout CVX Reac Dose Comm Prov Is Faci e tion ent ider Refu lity Give sed n Tdap 07-0 115 999 Hist H149 No H149 , 5-20 oric Adso 07 al rbed Info rmat ion - Sour ce Unsp ecif ied
--- OUTSIDE RECORDS SUMMARY | 2016-12-28 08:34 | External Medical Summary Rpt | CCD ---
Author Author , [employer]OL[employer] Address Unknown Phone [email or web address] Immunization Name Date Rout CVX Reac Dose Comm Prov Is Faci e tion ent ider Refu lity Give sed n Tdap 07-0 115 999 Hist H149 No H149 , 5-20 oric Adso 07 al rbed Info rmat ion - Sour ce Unsp ecif ied
[2016-12-28] MEDS ORDERED: ZITHROMAX Z PA250 MG PO (08:43)
[2016-12-28] MEDS ORDERED: TESSALON PERLE100 M1 PO (08:43)
[2016-12-28 08:50] VITALS: BP 158/72
== END 2016-12-28 08:51 | disposition home or self-care (01) ==
LOC: ER 08:15
DX: J06.9 Acute upper respiratory infection, unspecified (principal); H92.02 Otalgia, left ear; J45.909 Unspecified asthma, uncomplicated; N18.6 End stage renal disease; Z86.19 Personal history of other infectious and parasitic diseases; E11.9 Type 2 diabetes mellitus without complications; Z79.899 Other long term (current) drug therapy

== ENCOUNTER → 2017-01-28 | Outpatient (CLI) | payer MEDICAID ==
[~2017-01-28] MED LIST changes: +TESSALON PERLE100 M1 PO; +ZITHROMAX Z PA250 MG PO
[2017-01-28 14:27] LABS: LYMPH # 1.3 K/mm3 (0.7-4.5); LYMPH % 22.1 % (10-50.0)
[2017-01-28 14:34] LABS: HEMOGLOBIN 12.5 g/dL (12.2-16.2)
[2017-01-28 14:49] LABS: BUN 14 mg/dL (7-18)
[2017-01-28 14:53] LABS: GFR (ESTIMATED) 76 ML/MIN (59-)
== END ==
LOC: LAB 13:53
PROVIDERS: Emergency Medicine
DX: E11.9 Type 2 diabetes mellitus without complications (principal)